=== PATIENT | male | born 1945 | race Caucasian/White ===

== ENCOUNTER 2018-05-02 14:48 | Inpatient (IN) ==
[2018-05-02] MEDS ORDERED: SODIUM CHLORIDE 0.9% 1000ML 1,000 ML IV ONE (15:40)
[2018-05-02] MEDS ORDERED: fentaNYL citrate 100 MCG/2 ML VIAL IV PRN (15:40)
[2018-05-02] MEDS ORDERED: fentaNYL citrate 100 MCG/2 ML VIAL IV STA (15:40)
[2018-05-02 16:40] LABS: Basophils # (auto) 0.02 K/uL (0-0.2); Basophils % (auto) 0.2 %; Eosinophils # (auto) 0.05 K/uL (0-0.5); Eosinophils % (auto) 0.5 %; Hematocrit (blood only) 46.1 % (42-52); Hemoglobin 16.1 g/dL (14.0-18.0); Immature Granulocytes # (auto) 0.02 K/uL (0.00-0.02); Immature Granulocytes % (auto) 0.2 %; Lymphocytes # (auto) 0.89 K/uL (1.2-3.4); Lymphocytes % (auto) 8.8 %; Mean Corpuscular Hgb Conc 34.9 g/dL (32-36); Mean Corpuscular Volume 89.5 fL (80-100); Mean Platelet Volume 10.7 fL (7.4-10.4); Monocytes # (auto) 0.88 K/uL (0.11-0.59); Monocytes % (auto) 8.7 %; Neutrophils # (auto) 8.21 K/uL (1.4-6.5); Neutrophils % (auto) 81.6 %; Platelet Count 265 K/uL (130-400); RDW Coefficient of Variation 13.2 % (11.5-14.5); RDW Standard Deviation 43.2 fL (36.4-46.3); Red Blood Count 5.15 M/uL (4.7-6.1); White Blood Count 10.07 K/uL (4.8-10.8)
[2018-05-02 16:56] LABS: BUN Creatinine Ratio 10.8 (10-20); Blood Urea Nitrogen 16 mg/dl (7-18); Calcium 9.2 mg/dl (8.5-10.1); Carbon Dioxide 23 mmol/L (21-32); Chloride 101 mmol/L (98-107); Est GFR (African American) 57.1; Est GFR (Non-African American) 49.3; Glucose 98 mg/dl (70-99); Magnesium 2.3 mg/dl (1.8-2.4); Sodium 134 mmol/L (136-145)
[2018-05-02 17:00] LABS: Creatine Kinase 185 U/L (39-308); Troponin I < 0.015 ng/ml (0-0.045)
--- NOTE | 2018-05-02 17:29 | XRay Report ---
XR pelvis 1-2V routine, XR femur RT 2V routine HISTORY: 72 years-old Male Right hip pain s/p fall acute right hip pain status post fall COMPARISON: None available TECHNIQUE: AP view of the pelvis with 2 views of the right femur FINDINGS: PELVIS: No acute fracture, dislocation or opaque foreign body. No avascular necrosis. Vascular calcifications noted. FEMUR: No acute fracture or dislocation. Soft tissues are within normal limits. IMPRESSION: No acute fracture or dislocation. The above report was generated using voice recognition software. It may contain grammatical, syntax o r spelling errors. Electronically signed by: Pato Aceves M.D. 05/02/2018 5:28 PM
--- NOTE | 2018-05-02 17:29 | XRay Report ---
XR chest 1V portable CLINICAL HISTORY: fall, weakness COMPARISON STUDY: No previous studies for comparison. FINDINGS: There is no pneumothorax or pleural effusion. Cardiac size is normal. Mediastinal contours are normal. There is no evidence for pulmonary edema. There is no consolidation. There is a possible 1 cm left lower lung nodule. IMPRESSION: 1. No acute cardiomegaly findings. 2. Possible 1 cm left lower lung nodule. Follow-up nonemergent PA and shallow oblique radiographs of chest are recommended. Electronically signed by: Zaid Carrillo M.D. 05/02/2018 5:28 PM
[2018-05-02 17:52] LABS: Appearance Urine Clear (Clear); Bilirubin Urine Negative (Negative); Color Urine Yellow; Glucose Urine UA Negative (Negative); Ketones Urine Negative (Negative); Leukocyte Esterase Urine Negative (Negative); Nitrite Urine Negative (Negative); Protein Urine Negative (Negative); Urobilinogen Urine Negative (Negative); pH Urine 5.5 (4.5-7.5)
--- NOTE | 2018-05-02 18:01 | CT Scan Report ---
CT head/brain wo con CLINICAL HISTORY: 72 years-old Male with fall, LOC. Acute fall with loss of consciousness TECHNIQUE: Multiple axial CT images of the head were obtained without contrast. A dose lowering tech nique was utilized adhering to the principles of ALARA. CT DOSE: 729.78 mGycm COMPARISON: None. FINDINGS: No acute intracranial hemorrhage, midline shift, intracranial mass, hydrocephalus, territorial ischem ia or abnormal extra-axial collection. Senescent calcifications of the lentiform nuclei. Mild atrophy . Cerebral vascular calcifications are noted. Punctate calcification is noted about a sulcus within t he right frontal lobe, image 20 series 2. The calvarium is intact. The paranasal sinuses, mastoid air cells, and middle ear cavities are clear . IMPRESSION: No acute intracranial abnormality or calvarial fracture. The above report was generated using voice recognition software. It may contain grammatical, syntax o r spelling errors. Electronically signed by: Pato Aceves M.D. 05/02/2018 5:59 PM
--- NOTE | 2018-05-02 18:09 | CT Scan Report ---
CT pelvis wo con HISTORY: 72 years-old Male Persistent right hip pain, non-specific xrays hip chronic right hip pain COMPARISON: Pelvis and right hip radiographs of same day TECHNIQUE: Multiple axial CT images of the pelvis were obtained without the use of IV contrast. A dos e lowering technique was used consistent with the principals of MIREYA. 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 There is a subtle acute nondisplaced transcervical fracture of the proximal right femur, fracture lines most notably seen about the superi or and posterior cortices. No angulation. The left proximal femur and imaged pelvic bones appear norm al and intact. No additional acute fracture or dislocation. No sacral insufficiency fracture. Mild sp ondylitic spurring and facet arthrosis of the imaged lower lumbar spine. Calcification of the iliac arteries. No acute process of the imaged intrapelvic structures. The visua lized appendix appears normal. Colonic diverticulosis without acute diverticulitis. Mild wall thicken ing of the sigmoid colon, likely from chronic diverticular disease. Prostamegaly. Mild deep tissue ed jose about the right hip with trace joint effusion. No large intramuscular hematoma. IMPRESSION: 1. Subtle acute nondisplaced transcervical fracture of the proximal right femur. 2. Mild degree of reactive deep tissue edema about the right hip with trace joint effusion. 3. Prostamegaly. 4. Mild wall thickening of the sigmoid colon, likely secondary to chronic diverticular disease. The above report was generated using voice recognition software. It may contain grammatical, syntax o r spelling errors. Electronically signed by: Pato Aceves M.D. 05/02/2018 6:07 PM
[2018-05-02 18:32] LABS: Bacteria Urine Automated Negative (Negative); Cast Urine Automated 0 /lpf (0-5); Epithelial Cell Urine Auto 0-5 /lpf (0-5); Mucus Urine Present (None Prsent)
[2018-05-02 18:42] LABS: INR 1.1 (0.9-1.1); Prothrombin Time 11.4 Seconds (9.0-12.0)
--- NOTE | 2018-05-02 19:13 | History & Physical Report ---
Date of Service May 02, 2018 Assessment & Plan (1) Fracture of proximal end of right femur: This is a 9-year-old male with a PMH of HTN, CKD III, moderate COPD, BPH and tobacco use disorder who presents after a fall at home last evening. -Possible syncopal episode proceeding fall -CT head without acute abnormality -CT pelvis with subtle acute nondisplaced transcervical fracture of the proximal right femur and mild degree of reactive deep tissue edema about the right hip with trace joint effusion -Ortho consulted. Will see patient tomorrow -NPO after midnight. Pain control, antiemetics -Neurovascular checks, bedrest until surgical evaluation -CXR without acute cardiopulmonary abnormality. EKG with sinus rhythm and pulmonary disease pattern -Revised cardiac risk index for pre-op of 0.4% for risk of major cardiac event -Has never been evaluated by [facility] cardio. No record of echo performed in the past -Please refer to attending addendum for further details (2) Episode of syncope: No history of syncopal episodes -Ddx: vasovagal vs orthostatic vs cardiac etiology -Initially dry on exam and endorses feeling lightheaded when standing -Unable to obtain orthostatic vitals 2/2 leg pain -No known h/o cardiac disease -EKG without arrhythmia or acute ST changes -Order 2D echo (3) COPD (chronic obstructive pulmonary disease): H/o moderate-severe obstructive airway disease on 2008 PFTs -Longstanding tobacco use -Does not use home inhalers or home O2 -Saturating at 94% on RA (4) HTN (hypertension): Normotensive -Consider holding lisinopril in setting of mildly elevated creatinine (5) CKD (chronic kidney disease), stage III: Baseline Cr of 1.1-1.3, GFR of mid 50s. Currently Cr 1.4, GFR 49 -Dry on exam initially. Given 1L NSS in ED -Repeat BMP in AM to monitor renal function -Avoid nephrotoxic agents (6) Tobacco use disorder: Has 50+ pack years. Quit smoking cigarettes in 2012, now smokes tobacco from a pipe -Counselled on importance of cessation -Offered nicotine patch (7) BPH (benign prostatic hyperplasia): Continue flomax, proscar DVT Ppx: SCDs in setting of possible procedure tomorrow Code status: DNR per discussion with patient PCP: [facility] Dispo: Admitted to med/surg. Discharge planning ordered. Patient seen in collaboration with Dr. Denis. Please see addendum. History of Present Illness Chief Complaint: Right leg pain Primary Care Provider: Adrian Haque MD This is a 9-year-old male with a PMH of HTN, CKD III, moderate COPD, BPH and tobacco use disorder who presents after a fall at home last evening. Patient was walking to the kitchen and reached up to get something out of the cabinet when he lost consciousness and fell to the ground, hitting his right leg on some furniture on the way down. Endorses head trauma. Denies any proceeding lightheadedness, dizziness, chest pain, palpitations or shortness of breath. After landing on furniture, patient experienced shooting pain to right leg with any type of ambulation. Was attempting to ambulate with crutches around midnight when he had a mechanical fall. Continued to experience pain overnight with any movement of right leg. Took 2 ibuprofen at home with minimal relief. Came to ED for further evaluation Patient is hemodynamically stable. CT head and chest x-ray without acute abnormalities. CT pelvis with subtle acute nondisplaced transcervical fracture of the proximal right femur and mild degree of reactive deep tissue edema about the right hip with trace joint effusion. Feels mildly nauseated right now but thinks it is due to the pain medication he was just given. Has not been able to tolerate p.o. intake today due to pain. Did not take home medications today. Denies any fever, chills, lightheadedness, headache, chest pain, palpitations, shortness of breath, abdominal pain, vomiting, dysuria, diarrhea or constipation. No history of heart disease or DVT/PE. Does not require home oxygen. Allergies Allergy/AdvReac Type Severity Reaction Status Date / Time No Known Allergies Allergy Unverified 05/02/18 19:12 Home Medications Home Medications Medication Instructions Recorded Confirmed Type aspirin [Aspir-81] 81 mg PO DAILY@1300 05/02/18 05/02/18 History finasteride [Proscar] 5 mg PO DAILY@1300 05/02/18 05/02/18 History ibuprofen 200 mg PO QID PRN 05/02/18 05/02/18 History lisinopril [Zestril] 5 mg PO DAILY@1300 05/02/18 05/02/18 History loratadine [Claritin] 10 mg PO DAILY@1300 05/02/18 05/02/18 History multivitamin 1 tab PO DAILY@1300 05/02/18 05/02/18 History tamsulosin [Flomax] 0.4 mg PO DAILY@1300 05/02/18 05/02/18 History Past Med/Surg History Medical History Asymptomatic PVD (peripheral vascular disease) (Chronic) Tobacco use disorder (Chronic) CKD (chronic kidney disease), stage III (Chronic) COPD (chronic obstructive pulmonary disease) (Chronic) BPH (benign prostatic hyperplasia) (Chronic) HTN (hypertension) (Chronic) Surgical History History of tonsillectomy (Resolved) Family History Mother Congestive heart failure Social History Current Living Situation: Spouse Other Information That Helps Us Care for You: No Feels Safe at Home: Yes Safety Concerns: Feels Safe At This Time Smoking Status: Current every day smoker Tobacco Type: pipe Cigarettes per Day : 8-10/day Hx Alcohol Use: No Hx Substance Use: No Beliefs That Will Affect Care: None Preferred Language: Green[place]ic Communication Ability: Effective Communication Ability Comment: [place] Review of Systems All systems reviewed & are unremarkable except as noted in HPI & below Physical Exam 2 Vital Signs (Past 24 Hours): Last Vital Signs Temp 36.7 C 05/02/18 14:35 Pulse 87 05/02/18 17:20 Resp 25 H 05/02/18 17:20 BP 133/75 05/02/18 14:51 Pulse Ox 94 05/02/18 17:20 Physical Exam: General Appearance: WD/WN, appears older than stated age, in mild distress from acute right leg pain Head: normocephalic, atraumatic Eyes: normal inspection, PERRL, EOMI ENT: hard of hearing, pharynx normal (moist mucous membranes) Neck: supple, no JVD, no adenopathy Respiratory/Chest: lungs clear to auscultation. No wheezes, rales or rhonci. No respiratory distress or accessory muscle use Cardiovascular: regular rate, rhythm, no murmur, normal peripheral pulses Abdomen/GI: normal bowel sounds, soft, non-tender to palpation Extremities/Musculoskelatal: + Tenderness to palpation along right proximal femur. Refused range of motion and strength against resistance 2/2 pain. Distal pulses intact. No calf tenderness, normal capillary refill, no pedal edema Neurologic/Psych: alert, normal mood/affect, oriented x 3 Skin: normal color, warm/dry Results & Data Laboratory Results Short CBC 05/02/18 05/02/18 05/02/18 Range/Units 14:50 14:50 17:05 WBC 10.07 (4.8-10.8) K/uL Hgb 16.1 (14.0-18.0) g/dL Hct 46.1 (42-52) % Plt Count 265 (130-400) K/uL Creatinine 1.43 H (0.6-1.4) mg/dl Urine Mucus Present H (None Prsent) BMP 05/02/18 14:50 Sodium 134 L Potassium 4.0 Chloride 101 Carbon Dioxide 23 BUN 16 Creatinine 1.43 H Glucose 98 Calcium 9.2 Cardiac Enzymes 05/02/18 Range/Units 14:50 Total Creatine Kinase 185 (39-308) U/L Troponin I < 0.015 (0-0.045) ng/ml Urine 05/02/18 Range/Units 17:05 Urine Color Yellow Urine Appearance Clear (Clear) Urine pH 5.5 (4.5-7.5) Ur Specific [place] 1.010 (1.000-1.030) Urine Protein Negative (Negative) Urine Glucose (UA) Negative (Negative) Diagnostic Findings CT head: IMPRESSION: No acute intracranial abnormality or calvarial fracture. CXR: IMPRESSION: 1. No acute cardiomegaly findings. 2. Possible 1 cm left lower lung nodule. Follow-up non-emergent PA and shallow oblique radiographs of chest are recommended. Pelvis XR: IMPRESSION: No acute fracture or dislocation. Femur XR: IMPRESSION: No acute fracture or dislocation. Pelvis CT: IMPRESSION: 1. Subtle acute nondisplaced transcervical fracture of the proximal right femur. 2. Mild degree of reactive deep tissue edema about the right hip with trace joint effusion. 3. Prostamegaly. 4. Mild wall thickening of the sigmoid colon, likely secondary to chronic diverticular disease. ECG Rhythm: normal sinus Additional Comments: pulmonary disease pattern Code Status & VTE Plan Code Status DNR per discussion with patient Supervising Physician Co-Signing Physician Notes IM ATTENDING : Patient seen and examined. History obtained from patient and records. Preceding documentation by Ms. Brittanie Bynum PA-C reviewed. FINAL ASSESSMENT AND PLAN as follows : Traumatic right femoral fracture secondary to syncopal event Syncopal event likely secondary to orthostasis (antihypertensive and prostate meds contributory) rule out cardiac dysfunction COPD, pulmonary status at baseline PVD as per records CRI, creatinine at baseline Lung spot on pCXR History PTB status post treatment Past tobacco abuse Medical telemetry RE syncope Check orthostatic vitals Decrease maintenance home DEION inhibitor dose for now TTE RE syncope Orthopedics consult RE right femoral fracture (ER provider already in touch with clinical services specialist, Dr. Alvarez, who recommends possible surgery. Final preop medical evaluation pending TTE results. Routine PA Lat, oblique CXR in a.m. regarding abnormal PCXR DVT prophylaxis. SCDs RE possible surgery (Recommend pharmacologic anti-coagulation with heparin 5000 units subcutaneous every 8 hours once bleeding risk is deemed to be minimal and negligible pending Orthopedics evaluation.) DNR Patient's requesting updates from providers. Mrs. Yolette Ivory, contact numbers [phone], [phone]. _ (1) Fracture of proximal end of right femur Encounter type: initial encounter Fracture healing: Fracture type: closed Open fracture type: Qualified Code(s): S72.001A - Fracture of unspecified part of neck of right femur, initial encounter for closed fracture
[2018-05-02] MEDS ORDERED: KETOROLAC TROMETHAMINE 15 MG/ML VIAL IV PRN (19:34)
[2018-05-02] MEDS ORDERED: PROCHLORPERAZINE 5 MG in SYRINGE 4 ML IV PRN (19:37)
[2018-05-02] MEDS: HYDROmorphone INJ 0.5 MG/0.5 ML SYR IV PRN (19:57)
[2018-05-02] MEDS ORDERED: NITROGLYCERIN SL 0.4 MG/TAB TAB SL PRN (21:45)
[2018-05-02] MEDS ORDERED: MAGNESIUM HYDROXIDE SUSP 30 ML UDC PO PRN (21:45)
[2018-05-02] MEDS ORDERED: BISACODYL 10 MG SUPP PR PRN (21:45)
[2018-05-02] MEDS ORDERED: SOD PHOSPHATE/SOD BIPHOSPHATE ENEMA 132 ML BTL PR PRN (21:45)
[2018-05-02] MEDS ORDERED: NALOXONE HCL 0.4 MG/1 ML VIAL/CARP IV PRN (21:45)
[2018-05-02] MEDS ORDERED: ACETAMINOPHEN 325 MG TAB PO PRN (21:45)
[2018-05-02] MEDS: SODIUM CHLORIDE 0.9% 1000ML 1,000 ML IV SCH (23:40)
[2018-05-03] MEDS: HYDROmorphone INJ 0.5 MG/0.5 ML SYR IV PRN ×4 (00:08→12:34)
[2018-05-03] MEDS: TRAMADOL HCL 50 MG TABLET PO PRN ×3 (04:27→21:19)
[2018-05-03] MEDS ORDERED: LISINOPRIL 2.5 MG TAB PO SCH (09:00)
--- NOTE | 2018-05-03 09:33 | Emergency Department Note ---
Entered by Meka Ashton acting as a scribe for ED Provider Note Name: Te Ivory Age: 72 Arrives Via: EMS Informant: Patient CC: Fall HPI: The patient is a 72 year old male who presents to the Emergency Room via EMS following a fall that occurred last night around 2229. The patient reports that he injured his right hip during this episode and has had a persistent pain which is exacerbated by movement. He also states that he injured his head twice. Per , the patient took 2 ibuprofen earlier today which did alleviate his pain. The patient denies any abdominal pain, back pain, or chest pain. He admits to tobacco use via pipe and notes he is retired. The patient reports that he has not eaten today. Admits he was laying on the ground for most of the last 20ish hours. notes he has brief LOC after hitting his head. Mild headache currently. No neck pain, neuro deficits. Pain much worse with movement. Better with laying still. Denies blood thinner use other than ASA 81mg daily. ROS: See above HPI for pertinent positives & negatives. A total of 10 systems reviewed and were otherwise negative. Past Medical History: HTN, COPD, BPH, and hyperlipidemia. Past Surgical History: No pertinent past surgical history. Family History: No pertinent family history. Social History: , lives with spouse, tobacco use via pipe. Home Medications: finasteride 5 mg, lisinopril 5 mg, tamsulosin 0.4 mg, aspirin 81 mg, claritin 10 mg, men's multivitamins Allergies No known allergies. Physical: Vitals: BP: 133/75, P: 75, R: 16, T: 98.1, O2: 97 Exam: GENERAL: Patient is chronically unwell appearing, dehydrated appearing, and in moderate distress. EYES: No scleral icterus, unremarkable pupils. ENT: Mucous membranes dry, no nasal congestion. NECK: No masses appreciated, no meningismus, trachea is midline. RESPIRATORY: No dyspnea. Clear to auscultation and equal bilaterally. No wheeze , no rhonchi. CARDIOVASCULAR: Regular rate and rhythm. No murmurs, rubs, gallops appreciated. GASTROINTESTINAL: Abdomen soft, non-tender, no peritonitis. Bowel sounds positive. No masses appreciated. BACK: No midline tenderness, no CVA tenderness EXTREMITIES: Severe with range of motion of right hip, tenderness to palpation to right greater trochanter, distal n/v intact, no cyanosis, no edema. NEUROLOGIC: Alert and oriented, no acute motor or sensory deficits, no focal weakness, cranial nerves grossly intact. SKIN: No rash, no jaundice, no diaphoresis. GCS 15 ED Course: Prior Medical Record, Triage/Nursing Notes, Medications, Allergies reviewed by Me Vital Signs: reviewed and are within normal limits. Labs: Reviewed and remarkable for normal CBC, BMP, CK Interventions: Saline Lock, Fentanyl 50mcg IV x 2 Imaging: See below. EKG: See below. Consults: 1827: I reviewed the patient's case with Dr. Adeel Cope Hospitalist. He will evaluate the patient for further management. 1844; I discussed the patient's case with Dr. Alvarez - [facility]. He notes surgery might be necessary. Reassessments/Times: 1742: The patient is feeling better. Blood pressure: Normal no referral necessary. Disposition: Admit to hospitalist Prescriptions: none. Differentials: hip fracture, hip contusion, dehydration, rabdo, renal failure, amongst other pathologies. Medical Decision Making: Pleasant 72 yr old male s/p fall last evening and has been caring for him on ground since. No obvious rhabdo by exam nor labs. He has severe pain with ROM right hip which is out of proportion to negative xrays. With head injury felt that CT head indicated (age, + LOC) which was negative. CT pelvis done at same time reveals proximal femur fracture. Hospitalist to admit and ortho on board as well. Patient kept comfortable. No evidence that fall was due to anything other than mechanical at this time. Impression: Fracture of proximal end of right femur Closed Head Injury Isidro Saravia MD The scribe's documentation has been prepared under my direction and personally reviewed by me in its entirety. I confirm that the note above accurately reflects all work, treatment, procedures, and medical decision making performed by me. Impression & Plan Fracture of proximal end of right femur, Closed head injury Past Med/Surg History Medical History Asymptomatic PVD (peripheral vascular disease) (Chronic) Tobacco use disorder (Chronic) CKD (chronic kidney disease), stage III (Chronic) COPD (chronic obstructive pulmonary disease) (Chronic) BPH (benign prostatic hyperplasia) (Chronic) HTN (hypertension) (Chronic) Surgical History History of tonsillectomy (Resolved) Family History Mother Congestive heart failure Social History Current Living Situation: Spouse Other Information That Helps Us Care for You: No Feels Safe at Home: Yes Safety Concerns: Feels Safe At This Time Smoking Status: Current every day smoker Tobacco Type: pipe Cigarettes per Day : 8-10/day Hx Alcohol Use: No Hx Substance Use: No Beliefs That Will Affect Care: None Preferred Language: Ukrainian Communication Ability: Effective Communication Ability Comment: [place] Results & Data Vital Signs Vital Signs - 24 hr 05/02/18 14:35 05/02/18 14:51 05/02/18 15:24 Temperature 36.7 C Temperature Source Oral Sepsis Recent Fever Within 48 Hours No Sepsis New/Unexplained Change in Mental Status No Sepsis Action Taken by Nursing No Action Required Pulse Rate 95 H 74 81 Pulse Rate [Left Finger] Pulse Rhythm Regular Pulse Rhythm [Left Finger] Pulse Strength Normal Pulse Strength [Left Finger] Respiratory Rate 18 19 18 Respiratory Effort / Characteristics Non-Labored Spontaneous Respiratory Depth Normal Respiratory Pattern Regular Blood Pressure 133/75 133/75 Blood Pressure [Right Arm] Blood Pressure Mean 94 94 Blood Pressure Mean [Right Arm] Blood Pressure Position Lying Blood Pressure Position [Right Arm] Pulse Oximetry 98 97 97 Pulse Oximetry [Right Index Finger] Oxygen Delivery Method Room Air Oxygen Delivery Method [Right Index Finger] Oxygen Flow Rate 0 05/02/18 15:30 05/02/18 15:40 05/02/18 15:50 Temperature Temperature Source Sepsis Recent Fever Within 48 Hours Sepsis New/Unexplained Change in Mental Status Sepsis Action Taken by Nursing Pulse Rate 75 83 81 Pulse Rate [Left Finger] Pulse Rhythm Pulse Rhythm [Left Finger] Pulse Strength Pulse Strength [Left Finger] Respiratory Rate 16 19 16 Respiratory Effort / Characteristics Respiratory Depth Respiratory Pattern Blood Pressure Blood Pressure [Right Arm] Blood Pressure Mean Blood Pressure Mean [Right Arm] Blood Pressure Position Blood Pressure Position [Right Arm] Pulse Oximetry 97 97 99 Pulse Oximetry [Right Index Finger] Oxygen Delivery Method Oxygen Delivery Method [Right Index Finger] Oxygen Flow Rate 05/02/18 16:00 05/02/18 16:10 05/02/18 16:20 Temperature Temperature Source Sepsis Recent Fever Within 48 Hours Sepsis New/Unexplained Change in Mental Status Sepsis Action Taken by Nursing Pulse Rate 77 73 76 Pulse Rate [Left Finger] Pulse Rhythm Pulse Rhythm [Left Finger] Pulse Strength Pulse Strength [Left Finger] Respiratory Rate 14 10 L 20 Respiratory Effort / Characteristics Respiratory Depth Respiratory Pattern Blood Pressure Blood Pressure [Right Arm] Blood Pressure Mean Blood Pressure Mean [Right Arm] Blood Pressure Position Blood Pressure Position [Right Arm] Pulse Oximetry 97 98 98 Pulse Oximetry [Right Index Finger] Oxygen Delivery Method Oxygen Delivery Method [Right Index Finger] Oxygen Flow Rate 05/02/18 16:30 05/02/18 16:40 05/02/18 16:50 Temperature Temperature Source Sepsis Recent Fever Within 48 Hours Sepsis New/Unexplained Change in Mental Status Sepsis Action Taken by Nursing Pulse Rate 83 73 71 Pulse Rate [Left Finger] Pulse Rhythm Pulse Rhythm [Left Finger] Pulse Strength Pulse Strength [Left Finger] Respiratory Rate 19 18 17 Respiratory Effort / Characteristics Respiratory Depth Respiratory Pattern Blood Pressure Blood Pressure [Right Arm] Blood Pressure Mean Blood Pressure Mean [Right Arm] Blood Pressure Position Blood Pressure Position [Right Arm] Pulse Oximetry 97 98 97 Pulse Oximetry [Right Index Finger] Oxygen Delivery Method Oxygen Delivery Method [Right Index Finger] Oxygen Flow Rate 05/02/18 17:00 05/02/18 17:10 05/02/18 17:20 Temperature Temperature Source Sepsis Recent Fever Within 48 Hours Sepsis New/Unexplained Change in Mental Status Sepsis Action Taken by Nursing Pulse Rate 93 H 88 87 Pulse Rate [Left Finger] Pulse Rhythm Pulse Rhythm [Left Finger] Pulse Strength Pulse Strength [Left Finger] Respiratory Rate 25 H 19 25 H Respiratory Effort / Characteristics Respiratory Depth Respiratory Pattern Blood Pressure Blood Pressure [Right Arm] Blood Pressure Mean Blood Pressure Mean [Right Arm] Blood Pressure Position Blood Pressure Position [Right Arm] Pulse Oximetry 98 96 94 Pulse Oximetry [Right Index Finger] Oxygen Delivery Method Oxygen Delivery Method [Right Index Finger] Oxygen Flow Rate 05/02/18 21:21 05/02/18 21:45 05/02/18 22:10 Temperature 36.7 C 36.7 C Temperature Source Oral Oral Sepsis Recent Fever Within 48 Hours Sepsis New/Unexplained Change in Mental Status Sepsis Action Taken by Nursing Pulse Rate Pulse Rate [Left Finger] 77 82 82 Pulse Rhythm Pulse Rhythm [Left Finger] Regular Regular Pulse Strength Pulse Strength [Left Finger] Normal Normal Normal Respiratory Rate 18 20 20 Respiratory Effort / Characteristics Non-Labored Spontaneous Non-Labored Non-Labored Respiratory Depth Normal Normal Normal Respiratory Pattern Regular Regular Blood Pressure Blood Pressure [Right Arm] 105/72 126/74 126/74 Blood Pressure Mean Blood Pressure Mean [Right Arm] 83 91 91 Blood Pressure Position Blood Pressure Position [Right Arm] Lying Lying Lying Pulse Oximetry 95 99 99 Pulse Oximetry [Right Index Finger] Oxygen Delivery Method Room Air Room Air Room Air Oxygen Delivery Method [Right Index Finger] Oxygen Flow Rate 05/02/18 23:46 05/03/18 01:17 05/03/18 01:20 Temperature 36.9 C Temperature Source Oral Sepsis Recent Fever Within 48 Hours Sepsis New/Unexplained Change in Mental Status Sepsis Action Taken by Nursing Pulse Rate Pulse Rate [Left Finger] 91 H Pulse Rhythm Pulse Rhythm [Left Finger] Pulse Strength Pulse Strength [Left Finger] Respiratory Rate 18 Respiratory Effort / Characteristics Non-Labored Spontaneous Respiratory Depth Normal Respiratory Pattern Regular Blood Pressure Blood Pressure [Right Arm] 126/84 Blood Pressure Mean Blood Pressure Mean [Right Arm] 98 Blood Pressure Position Blood Pressure Position [Right Arm] Lying Pulse Oximetry 95 Pulse Oximetry [Right Index Finger] 95 Oxygen Delivery Method Room Air Room Air Oxygen Delivery Method [Right Index Finger] Room Air Oxygen Flow Rate 05/03/18 04:39 05/03/18 04:40 05/03/18 07:49 Temperature 36.7 C 36.7 C Temperature Source Oral Oral Sepsis Recent Fever Within 48 Hours Sepsis New/Unexplained Change in Mental Status Sepsis Action Taken by Nursing Pulse Rate Pulse Rate [Left Finger] 95 H 95 H Pulse Rhythm Pulse Rhythm [Left Finger] Regular Pulse Strength Pulse Strength [Left Finger] Normal Respiratory Rate 20 18 Respiratory Effort / Characteristics Non-Labored Spontaneous Respiratory Depth Normal Respiratory Pattern Regular Blood Pressure Blood Pressure [Right Arm] 121/75 116/71 Blood Pressure Mean Blood Pressure Mean [Right Arm] 90 86 Blood Pressure Position Blood Pressure Position [Right Arm] Semi-fowlers Pulse Oximetry 92 93 Pulse Oximetry [Right Index Finger] 92 Oxygen Delivery Method Room Air Room Air Oxygen Delivery Method [Right Index Finger] Room Air Oxygen Flow Rate Home Medications Current Medication List: was personally reviewed by me Laboratory Data Attestation: I reviewed the patient's lab results. Result diagrams: 05/02/18 14:50 05/02/18 14:50 Lab Results 05/02/18 05/02/18 05/02/18 Range/Units 14:50 14:50 14:50 WBC 10.07 (4.8-10.8) K/uL RBC 5.15 (4.7-6.1) M/uL Hgb 16.1 (14.0-18.0) g/dL Hct 46.1 (42-52) % MCV 89.5 (80-100) fL MCH 31.3 (25-34) pg MCHC 34.9 (32-36) g/dL RDW Std Deviation 43.2 (36.4-46.3) fL RDW Coeff of Sia 13.2 (11.5-14.5) % Plt Count 265 (130-400) K/uL MPV 10.7 H (7.4-10.4) fL Immature Gran % (Auto) 0.2 % Neut % (Auto) 81.6 % Lymph % (Auto) 8.8 % [place] % (Auto) 8.7 % Eos % (Auto) 0.5 % Baso % (Auto) 0.2 % Immature Gran # (Auto) 0.02 (0.00-0.02) K/uL Neut # (Auto) 8.21 H (1.4-6.5) K/uL Lymph # (Auto) 0.89 L (1.2-3.4) K/uL [place] # (Auto) 0.88 H (0.11-0.59) K/uL Eos # (Auto) 0.05 (0-0.5) K/uL Baso # (Auto) 0.02 (0-0.2) K/uL PT Cancelled INR Cancelled Sodium 134 L (136-145) mmol/L Potassium 4.0 (3.5-5.1) mmol/L Chloride 101 (98-107) mmol/L Carbon Dioxide 23 (21-32) mmol/L Anion Gap 10.0 (3-11) BUN 16 (7-18) mg/dl Creatinine 1.43 H (0.6-1.4) mg/dl Est Cr Clr Drug Dosing Not Reportable Est GFR ( Amer) 57.1 Est GFR (Non-Af Amer) 49.3 BUN/Creatinine Ratio 10.8 (10-20) Glucose 98 (70-99) mg/dl Calcium 9.2 (8.5-10.1) mg/dl Magnesium 2.3 (1.8-2.4) mg/dl Total Creatine Kinase 185 (39-308) U/L Troponin I < 0.015 (0-0.045) ng/ml TSH (0.300-4.500) uIu/ml Urine Color Urine Appearance (Clear) Urine pH (4.5-7.5) Ur Specific [place] (1.000-1.030) Urine Protein (Negative) Urine Glucose (UA) (Negative) Urine Ketones (Negative) Urine Blood (Negative) Urine Nitrite (Negative) Urine Bilirubin (Negative) Urine Urobilinogen (Negative) Ur Leukocyte Esterase (Negative) Urine WBC (Auto) (0-5) /hpf Urine RBC (Auto) (0-4) /hpf U Hyaline Cast (Auto) (0-5) /lpf U Epithel Cells (Auto) (0-5) /lpf Urine Bacteria (Auto) (Negative) Urine Mucus (None Prsent) Blood Type Antibody Screen 05/02/18 05/02/18 05/02/18 Range/Units 14:50 17:05 17:05 WBC (4.8-10.8) K/uL RBC (4.7-6.1) M/uL Hgb (14.0-18.0) g/dL Hct (42-52) % MCV (80-100) fL MCH (25-34) pg MCHC (32-36) g/dL RDW Std Deviation (36.4-46.3) fL RDW Coeff of Sia (11.5-14.5) % Plt Count (130-400) K/uL MPV (7.4-10.4) fL Immature Gran % (Auto) % Neut % (Auto) % Lymph % (Auto) % [place] % (Auto) % Eos % (Auto) % Baso % (Auto) % Immature Gran # (Auto) (0.00-0.02) K/uL Neut # (Auto) (1.4-6.5) K/uL Lymph # (Auto) (1.2-3.4) K/uL [place] # (Auto) (0.11-0.59) K/uL Eos # (Auto) (0-0.5) K/uL Baso # (Auto) (0-0.2) K/uL PT Cancelled INR Cancelled Sodium (136-145) mmol/L Potassium (3.5-5.1) mmol/L Chloride (98-107) mmol/L Carbon Dioxide (21-32) mmol/L Anion Gap (3-11) BUN (7-18) mg/dl Creatinine (0.6-1.4) mg/dl Est Cr Clr Drug Dosing Est GFR ( Amer) Est GFR (Non-Af Amer) BUN/Creatinine Ratio (10-20) Glucose (70-99) mg/dl Calcium (8.5-10.1) mg/dl Magnesium (1.8-2.4) mg/dl Total Creatine Kinase (39-308) U/L Troponin I (0-0.045) ng/ml TSH 0.788 (0.300-4.500) uIu/ml Urine Color Yellow Urine Appearance Clear (Clear) Urine pH 5.5 (4.5-7.5) Ur Specific [place] 1.010 (1.000-1.030) Urine Protein Negative (Negative) Urine Glucose (UA) Negative (Negative) Urine Ketones Negative (Negative) Urine Blood 1+ H (Negative) Urine Nitrite Negative (Negative) Urine Bilirubin Negative (Negative) Urine Urobilinogen Negative (Negative) Ur Leukocyte Esterase Negative (Negative) Urine WBC (Auto) 5-10 H (0-5) /hpf Urine RBC (Auto) 0-4 (0-4) /hpf U Hyaline Cast (Auto) 0 (0-5) /lpf U Epithel Cells (Auto) 0-5 (0-5) /lpf Urine Bacteria (Auto) Negative (Negative) Urine Mucus Present H (None Prsent) Blood Type Antibody Screen 05/02/18 05/03/18 Range/Units 18:26 05:41 WBC (4.8-10.8) K/uL RBC (4.7-6.1) M/uL Hgb (14.0-18.0) g/dL Hct (42-52) % MCV (80-100) fL MCH (25-34) pg MCHC (32-36) g/dL RDW Std Deviation (36.4-46.3) fL RDW Coeff of Sia (11.5-14.5) % Plt Count (130-400) K/uL MPV (7.4-10.4) fL Immature Gran % (Auto) % Neut % (Auto) % Lymph % (Auto) % [place] % (Auto) % Eos % (Auto) % Baso % (Auto) % Immature Gran # (Auto) (0.00-0.02) K/uL Neut # (Auto) (1.4-6.5) K/uL Lymph # (Auto) (1.2-3.4) K/uL [place] # (Auto) (0.11-0.59) K/uL Eos # (Auto) (0-0.5) K/uL Baso # (Auto) (0-0.2) K/uL PT 11.4 INR 1.1 Sodium (136-145) mmol/L Potassium (3.5-5.1) mmol/L Chloride (98-107) mmol/L Carbon Dioxide (21-32) mmol/L Anion Gap (3-11) BUN (7-18) mg/dl Creatinine (0.6-1.4) mg/dl Est Cr Clr Drug Dosing Est GFR ( Amer) Est GFR (Non-Af Amer) BUN/Creatinine Ratio (10-20) Glucose (70-99) mg/dl Calcium (8.5-10.1) mg/dl Magnesium (1.8-2.4) mg/dl Total Creatine Kinase (39-308) U/L Troponin I (0-0.045) ng/ml TSH (0.300-4.500) uIu/ml Urine Color Urine Appearance (Clear) Urine pH (4.5-7.5) Ur Specific [place] (1.000-1.030) Urine Protein (Negative) Urine Glucose (UA) (Negative) Urine Ketones (Negative) Urine Blood (Negative) Urine Nitrite (Negative) Urine Bilirubin (Negative) Urine Urobilinogen (Negative) Ur Leukocyte Esterase (Negative) Urine WBC (Auto) (0-5) /hpf Urine RBC (Auto) (0-4) /hpf U Hyaline Cast (Auto) (0-5) /lpf U Epithel Cells (Auto) (0-5) /lpf Urine Bacteria (Auto) (Negative) Urine Mucus (None Prsent) Blood Type B Negative Antibody Screen NEGATIVE Administered Medications Hydromorphone HCl (Dilaudid) 0.5 mg IV Q3H PRN PRN Reason: Pain Stop: 05/16/18 19:36 Last Admin: 05/03/18 07:49 Dose: 0.5 mg Admin: 05/03/18 03:14 Dose: 0.5 mg Admin: 05/03/18 00:08 Dose: 0.5 mg Admin: 05/02/18 19:57 Dose: 0.5 mg Sodium Chloride (Nss 1000ml) 1,000 mls @ 60 mls/hr IV .[id number] ANA M Stop: 06/02/18 00:00 Last Admin: 05/02/18 23:40 Dose: 60 mls/hr Lisinopril (Zestril) 2.5 mg PO QAM ANA M Stop: 06/02/18 08:59 Last Admin: 05/03/18 09:01 Dose: 2.5 mg Tramadol HCl (Ultram) 25 - 50 mg PO Q4H PRN PRN Reason: Pain Stop: 06/01/18 19:36 Last Admin: 05/03/18 09:00 Dose: 50 mg Admin: 05/03/18 04:27 Dose: 50 mg Discontinued Medications Fentanyl Citrate (Fentanyl Citrate) 50 mcg IV NOW STA Stop: 05/02/18 15:41 Last Admin: 05/02/18 15:57 Dose: 50 mcg Fentanyl Citrate (Fentanyl Citrate) 50 mcg IV Q15M PRN PRN Reason: Pain Stop: 05/16/18 15:39 Last Admin: 05/02/18 17:30 Dose: 50 mcg Sodium Chloride (Nss 1000ml) 1,000 mls @ 999 mls/hr IV .[id number] ONE Stop: 05/02/18 16:40 Last Infusion: 05/02/18 16:42 Dose: 0 mls/hr Admin: 05/02/18 15:50 Dose: 999 mls/hr Imaging Data Radiologist's Impression: Radiology results as stated below per my review and the radiologist's interpretation: XR pelvis 1-2V routine, XR femur RT 2V routine HISTORY: 72 years-old Male Right hip pain s/p fall acute right hip pain status post fall COMPARISON: None available TECHNIQUE: AP view of the pelvis with 2 views of the right femur FINDINGS: PELVIS: No acute fracture, dislocation or opaque foreign body. No avascular necrosis. Vascular calcifications noted. FEMUR: No acute fracture or dislocation. Soft tissues are within normal limits. IMPRESSION: No acute fracture or dislocation. The above report was generated using voice recognition software. It may contain grammatical, syntax or spelling errors. Electronically signed by: Pato Aceves M.D. 05/02/2018 5:28 PM XR chest 1V portable CLINICAL HISTORY: fall, weakness COMPARISON STUDY: No previous studies for comparison. FINDINGS: There is no pneumothorax or pleural effusion. Cardiac size is normal. Mediastinal contours are normal. There is no evidence for pulmonary edema. There is no consolidation. There is a possible 1 cm left lower lung nodule. IMPRESSION: 1. No acute cardiomegaly findings. 2. Possible 1 cm left lower lung nodule. Follow-up nonemergent PA and shallow oblique radiographs of chest are recommended. Electronically signed by: Zaid Carrillo M.D. 05/02/2018 5:[address] head/brain wo con CLINICAL HISTORY: 72 years-old Male with fall, LOC. Acute fall with loss of consciousness TECHNIQUE: Multiple axial CT images of the head were obtained without contrast. A dose lowering technique was utilized adhering to the principles of ALARA. CT DOSE: 729.78 mGycm COMPARISON: None. FINDINGS: No acute intracranial hemorrhage, midline shift, intracranial mass, hydrocephalus, territorial ischemia or abnormal extra-axial collection. Senescent calcifications of the lentiform nuclei. Mild atrophy. Cerebral vascular calcifications are noted. Punctate calcification is noted about a sulcus within the right frontal lobe, image 20 series 2. The calvarium is intact. The paranasal sinuses, mastoid air cells, and middle ear cavities are clear. IMPRESSION: No acute intracranial abnormality or calvarial fracture. The above report was generated using voice recognition software. It may contain grammatical, syntax or spelling errors. Electronically signed by: Pato Aceves M.D. 05/02/2018 5:[address] pelvis wo con HISTORY: 72 years-old Male Persistent right hip pain, non-specific xrays hip chronic right hip pain COMPARISON: Pelvis and right hip radiographs of same day TECHNIQUE: Multiple axial CT images of the pelvis were obtained without the use of IV contrast. A dose lowering technique was used consistent with the principals of ALARA. 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 There is a subtle acute nondisplaced transcervical fracture of the proximal right femur, fracture lines most notably seen about the superior and posterior cortices. No angulation. The left proximal femur and imaged pelvic bones appear normal and intact. No additional acute fracture or dislocation. No sacral insufficiency fracture. Mild spondylitic spurring and facet arthrosis of the imaged lower lumbar spine. Calcification of the iliac arteries. No acute process of the imaged intrapelvic structures. The visualized appendix appears normal. Colonic diverticulosis without acute diverticulitis. Mild wall thickening of the sigmoid colon, likely from chronic diverticular disease. Prostamegaly. Mild deep tissue edema about the right hip with trace joint effusion. No large intramuscular hematoma. IMPRESSION: 1. Subtle acute nondisplaced transcervical fracture of the proximal right femur. 2. Mild degree of reactive deep tissue edema about the right hip with trace joint effusion. 3. Prostamegaly. 4. Mild wall thickening of the sigmoid colon, likely secondary to chronic diverticular disease. The above report was generated using voice recognition software. It may contain grammatical, syntax or spelling errors. Electronically signed by: Pato Aceves M.D. 05/02/2018 6:07 PM ECG Data Attestation: I personally reviewed and interpreted this ECG as follows: Indication: weakness Rate (beats per minute): 91 Rhythm: normal sinus Findings: + other (QTC of 435, large P waves); no acute ischemic change and no ectopy Blood Pressure Blood Pressure Findings: Normal blood pressure Blood Pressure Disposition: did not require urgent referral Discharge Plan Visit Data *Final* Discharge Date/Time: 05/02/18 20:46 Chief Complaint: Hip Pain Other Complaint: Syncope ED Provider: Isidro Saravia Discharge Problem: Fracture of proximal end of right femur, Closed head injury Patient Disposition: Admitted As Inpatient Discharge Instructions Interventions: ED Discharge Assessment Last Done: 05/02/18 20:46 The scribe's documentation has been prepared under my direction and personally reviewed by me in its entirety. I confirm that the note above accurately reflects all work, treatment, procedures, and medical decision making performed by me.
--- NOTE | 2018-05-03 10:30 | Anesthesiology Consultation ---
Date of Service May 03, 2018 COPD Smoker Mechanical Fall HTN BPH CKD PVD Assessment & Plan (1) Encounter for pre-operative examination: Chart Review Chart Review: Acceptable Risk for Surgery and Patient NOT seen in Pre Admission Testing Consults Requested none History Surgery Operation Date: 05/03/18 09:40 Proposed Procedures p ORIF Hip Cannulated Screw - Vladislav Alvarez DO s Total Hip Arthroplasty Uncemented - Vladislav Alvarez DO Height/Weight Height: 6 ft Weight: 68 kg Allergies Allergy/AdvReac Type Severity Reaction Status Date / Time No Known Allergies Allergy Unverified 05/02/18 19:12 Medications Home Medications Medication Instructions Recorded Confirmed Last Taken aspirin [Aspir-81] 81 mg PO DAILY@1300 05/02/18 05/02/18 05/01/18 finasteride [Proscar] 5 mg PO DAILY@1300 05/02/18 05/02/18 05/01/18 ibuprofen 200 mg PO QID PRN 05/02/18 05/02/18 05/02/18 10:30 lisinopril [Zestril] 5 mg PO DAILY@1300 05/02/18 05/02/18 05/01/18 loratadine [Claritin] 10 mg PO DAILY@1300 05/02/18 05/02/18 05/01/18 multivitamin 1 tab PO DAILY@1300 05/02/18 05/02/18 05/01/18 tamsulosin [Flomax] 0.4 mg PO DAILY@1300 05/02/18 05/02/18 05/01/18 Active Medications Generic Name Dose Route Start Last Admin Trade Name Freq PRN Reason Stop Dose Admin Hydromorphone HCl 0.5 mg 05/02/18 19:37 05/03/18 07:49 Dilaudid IV 05/16/18 19:36 0.5 mg Q3H PRN Administration Pain Sodium Chloride 1,000 mls @ 60 mls/hr 05/03/18 00:00 05/02/18 23:40 Nss 1000ml IV 06/02/18 00:00 60 mls/hr .[id number] ANA M Administration Lisinopril 2.5 mg 05/03/18 09:00 05/03/18 09:01 Zestril PO 06/02/18 08:59 2.5 mg QAM ANA M Administration Tramadol HCl 25 - 50 mg 05/02/18 19:37 05/03/18 09:00 Ultram PO 06/01/18 19:36 50 mg Q4H PRN Administration Pain Past Medical History Medical History Asymptomatic PVD (peripheral vascular disease) (Chronic) Tobacco use disorder (Chronic) CKD (chronic kidney disease), stage III (Chronic) COPD (chronic obstructive pulmonary disease) (Chronic) BPH (benign prostatic hyperplasia) (Chronic) HTN (hypertension) (Chronic) Past Family History Family History Mother Congestive heart failure Past Surgical History Surgical History History of tonsillectomy (Resolved) Social History Smoking Status: Current every day smoker tobacco type: pipe Smoking cigarettes per day: 8-10/day Hx Alcohol Use: No alcohol intake frequency: holidays/special occasions only Hx Substance Use: No Physical Exam Vital Signs Last Vital Signs Temp 36.7 C 05/03/18 07:49 Pulse 95 H 05/03/18 07:49 Resp 18 05/03/18 07:49 BP 116/71 05/03/18 07:49 Pulse Ox 93 05/03/18 07:49 Testing Electrocardiogram Date: 05/02/18 Findings: + NSR @ (91) "Pulmonary disease pattern" Chest X-Ray Date: 05/02/18 Findings: + NAD Laboratory Results 05/02/18 14:50 05/02/18 14:50 Blood Type B Negative 05/03/18 05:41 Antibody Screen NEGATIVE 05/03/18 05:41 PT 11.4 Seconds (9.0-12.0) 05/02/18 18:26 INR 1.1 (0.9-1.1) 05/02/18 18:26 Urine Color Yellow 05/02/18 17:05 Urine Appearance Clear (Clear) 05/02/18 17:05 Urine pH 5.5 (4.5-7.5) 05/02/18 17:05 Ur Specific [place] 1.010 (1.000-1.030) 05/02/18 17:05 Urine Protein Negative (Negative) 05/02/18 17:05 Urine Glucose (UA) Negative (Negative) 05/02/18 17:05 Urine Ketones Negative (Negative) 05/02/18 17:05 Urine Nitrite Negative (Negative) 05/02/18 17:05 Ur Leukocyte Esterase Negative (Negative) 05/02/18 17:05 Urine WBC (Auto) 5-10 /hpf (0-5) H 05/02/18 17:05 Urine RBC (Auto) 0-4 /hpf (0-4) 05/02/18 17:05 U Hyaline Cast (Auto) 0 /lpf (0-5) 05/02/18 17:05 U Epithel Cells (Auto) 0-5 /lpf (0-5) 05/02/18 17:05 Urine Bacteria (Auto) Negative (Negative) 05/02/18 17:05 Laboratory Tests 05/02/18 18:26 PT 11.4 INR 1.1
[2018-05-03] MEDS: TAMSULOSIN HCL 0.4 MG CAP PO SCH ×2 (12:35→17:10)
[2018-05-03] MEDS: LORATADINE 10 MG TAB PO SCH ×2 (12:35→17:10)
[2018-05-03] MEDS: MULTIVITAMIN TAB PO SCH ×2 (12:35→17:10)
[2018-05-03] MEDS: ASPIRIN 81 MG ECTAB PO SCH ×2 (12:39→17:10)
[2018-05-03] MEDS ORDERED: fentaNYL citrate 100 MCG/2 ML VIAL ONE (13:42)
[2018-05-03] MEDS ORDERED: MIDAZOLAM HCL 1 MG/ML 2ML VIAL ONE (13:42)
[2018-05-03] MEDS ORDERED: ATROPINE SULFATE 0.1 MG/ML 5ML SYR IV PRN (13:43)
[2018-05-03] MEDS ORDERED: fentaNYL citrate 100 MCG/2 ML VIAL IV PRN (13:43)
[2018-05-03] MEDS ORDERED: ONDANSETRON INJ 2 MG/ML 2 ML VIAL IV PRN (13:43)
[2018-05-03] MEDS ORDERED: ePHEDrine sulfate 50 MG/ML AMP IV PRN (13:43)
--- NOTE | 2018-05-03 14:13 | History & Physical Bridge Note ---
Date of Service May 03, 2018 History & Physical Bridge Note I have examined the patient, reviewed the History & Physical and in the interval since the performance of the History & Physical I have noted the following changes of clinical significance: no changes noted
[2018-05-03] MEDS ORDERED: CEFAZOLIN 1000MG 1,000 MG/7.5 ML SYR IV SCH (14:14)
[2018-05-03] MEDS ORDERED: CEFAZOLIN 1,000 MG/7.5 ML IV PUSH IV ONE (14:15)
--- NOTE | 2018-05-03 15:14 | Operative Report ---
Post Operative Report Pre & Post Diagnosis Operation Date: 05/03/18 09:40 Pre-Op Diagnosis: Fracture of proximal end of right femur Post-Op Diagnosis: Fracture of proximal end of right femur Procedure Operation Date: 05/03/18 09:40 Actual Procedures p Open Reduction Internal Fixation Right Hip Cannulated Screw(Right) - Guredep Michele MD Surgeon Gurdeep Michele MD Travel Accommodations [place] Estimated Blood Loss 20 Findings Consistent with Post-Op Diagnosis Specimens None Anesthesia Type General Complications none Disposition Accompanied Patient To Recovery: No Disposition: Recovery Room Description of Procedure Patient was placed in the fracture table and the right hip was prepped and draped in usual sterile manner. Incision was made over the lateral aspect of the thigh. A single drill tip guidewire was placed in the central inferior position of the femoral head. 2 parallel drill tip guidewire was placed superior anterior and superior posterior to this and these were overdrilled using 105 mm to 100mm cancellous bone screws. K wires removed final x-rays revealed good screw placement wound was irrigated and closed using #1 Vicryl and keny sterile dressing of Adaptic 4 x 4 and OpSite was applied. The patient tolerated procedure well. Mr. Mckeon was utilized to help position the patient I attest to the content of the Intraoperative Record and any orders documented therein. Any exceptions are noted below.
[2018-05-03] MEDS ORDERED: PROPOFOL IV EMULSION 10 MG/ML 20 ML VIAL IV ONE (15:15)
[2018-05-03] MEDS ORDERED: DEXAMETHASONE SOD INJ 4 MG/ML VIAL ONE (15:15)
[2018-05-03] MEDS ORDERED: ONDANSETRON INJ 2 MG/ML 2 ML VIAL ONE (15:15)
[2018-05-03] MEDS ORDERED: LIDOCAINE HCL 2% 2 ML VIAL/AMP(20MG/ML) INFIL ONE (15:15)
--- NOTE | 2018-05-03 15:21 | Fluoroscopy Report ---
FL hip RT 2-3V CLINICAL HISTORY: RT HIP PERCUTANEOUS PINNING VS TOTAL HIP COMPARISON STUDY: Right femur radiographs and CT of the pelvis September or 2018. FLUOROSCOPY TIME: 25.2 seconds. FLUOROSCOPIC IMAGES: 2 FINDINGS: These images demonstrate expected findings following placement of 3 cannulated screws which extend across the femoral neck fracture. Hardware is intact. Fracture alignment appears anatomic. Th ere are no unexpected radiopaque foreign bodies. IMPRESSION: Expected findings following internal fixation of the right femoral neck fracture. Electronically signed by: Zaid Carrillo M.D. 05/03/2018 3:20 PM
--- NOTE | 2018-05-03 15:42 | Anesthesiology Progress Note ---
Date of Service May 03, 2018 Anesthesia Post Procedure Vital Signs Vital Signs: Temp Pulse Pulse Pulse Resp BP Pulse Ox 05/03/18 15:30 92 H 18 126/76 100 05/03/18 15:20 102 H 18 123/67 99 05/03/18 15:10 97.3 F L 96 H 19 107/63 99 05/03/18 13:29 97.5 F L 104 H 20 155/97 H 95 05/03/18 11:14 98.1 F 87 18 108/63 93 05/03/18 08:00 89 05/03/18 07:49 98.1 F 95 H 18 116/71 93 05/03/18 04:40 05/03/18 04:39 98.1 F 95 H 20 121/75 92 05/03/18 01:20 05/03/18 01:17 98.4 F 91 H 18 126/84 95 05/02/18 22:10 98.1 F 82 20 126/74 99 05/02/18 21:45 98.1 F 82 20 126/74 99 05/02/18 21:21 77 18 105/72 95 05/02/18 17:20 87 25 H 94 05/02/18 17:10 88 19 96 05/02/18 17:00 93 H 25 H 98 05/02/18 16:50 71 17 97 05/02/18 16:40 73 18 98 05/02/18 16:30 83 19 97 05/02/18 16:20 76 20 98 05/02/18 16:10 73 10 L 98 05/02/18 16:00 77 14 97 05/02/18 15:50 81 16 99 Pulse Ox 05/03/18 15:30 05/03/18 15:20 05/03/18 15:10 05/03/18 13:29 05/03/18 11:14 05/03/18 08:00 93 05/03/18 07:49 05/03/18 04:40 92 05/03/18 04:39 05/03/18 01:20 95 05/03/18 01:17 05/02/18 22:10 05/02/18 21:45 05/02/18 21:21 05/02/18 17:20 05/02/18 17:10 05/02/18 17:00 05/02/18 16:50 05/02/18 16:40 05/02/18 16:30 05/02/18 16:20 05/02/18 16:10 05/02/18 16:00 05/02/18 15:50 Pain Intensity Right Hip: Pain Intensity: 0 Notes Mental Status: alert / awake / arousable and participated in evaluation Patient Amnestic to Procedure: Yes Nausea / Vomiting: adequately controlled Pain: adequately controlled Airway Patency, RR, SpO2: stable & adequate BP & HR: stable & adequate Hydration State: stable & adequate Anesthetic Complications: no major complications apparent and Pt Satisfied with anesthetic care
--- NOTE | 2018-05-03 16:11 | Hospitalist Progress Note ---
Date of Service May 03, 2018 Assessment & Plan (1) Left wrist fracture: Will defer management to Orthopedics, already seeing him for the hip. (2) Fall: He describes the fall at home at a time when he was attempting to get his cat out of a bad spot on a shelf, so he was racing across the kitched floor to help his . He doesn't remember tripping on anything or feeling any presyncopal symptoms such as lightheadedness, but states that when he fell down he remembers the point right before his head hit the floor. When he went down the first time, his turned around and saw him down. So although she didn' t witness the actual fall there was no noted loss of consciousness. They both state that he tried to get up at that point without any confusion, and couldn't because he had hurt his hip. So he crawled to the bedroom and got into bed. A few hours later he tried to get up and walk around but couldn't, then fell from a standing height again, now onto his L wrist. It doesn't appear that he had a syncopal issue at all. He has no h/o syncope. Telemetry was reviewed and he was without events. 2D echo was reviewed and was within normal limits. Orthostatics were unable to be obtained 2/2/ hip fracture and his inability to stand. He was noted to be dry on exam by the admitting team, and that he endorsed feeling lightheaded when standing. Fall appears to be mechanical in the setting of possible dehydration and under stress while trying to help his with their cat. No further syncopal workup should be necessary. (3) Fracture of proximal end of right femur: s/p ORIF by Dr. Michele today. Pain is well controlled. Cont post op activity restrictions per Ortho (4) COPD (chronic obstructive pulmonary disease): h/o smoking, no wheezing, COPD appears stable. HE doesn't require supplemental oxygen at home and is not on home inhaler therapy. (5) HTN (hypertension): BP is low normal post-op--holding home lisinopril. (6) CKD (chronic kidney disease), stage III: Baseline Cr of 1.1-1.3, GFR of mid 50s. Currently Cr 1.4, GFR 49 -Dry on exam initially. Given 1L NSS in ED -Repeat BMP in AM to monitor renal function -Avoid nephrotoxic agents (7) Tobacco use disorder: Has 50+ pack years. Quit smoking cigarettes in 2013, now smokes tobacco from a pipe -Counselled on importance of cessation (8) BPH (benign prostatic hyperplasia): Continue flomax, proscar DVT Ppx: SCDs until cleared by surgeons for other form of DVT propphy Code status: DNR PCP: [facility] Dispo: pending Ortho recs. Bing Ramirez DO [facility] Hospitalist Subjective 72 yo M presents with hip pain after a fall at home. s/p ORIF today with improvement in pain. Still some pain in the L wrist. Otherwise he does not report any other symptoms. See A/P for more in depth description of fall event at home. Tolerating PO. Physical Exam 2 Vital Signs (Past 24 Hours): Last Vital Signs Temp 36.8 C 05/03/18 15:50 Pulse 93 H 05/03/18 15:50 Resp 18 05/03/18 15:50 BP 145/78 H 05/03/18 15:50 Pulse Ox 95 05/03/18 15:50 CONSTITUTIONAL: WNWD, vitals as above, generally well-appearing, NATIVE EYES: normal conjuctivae, no scleral icterus RESPIRATORY: clear to auscultation bilaterally, no crackles, rales or wheezes, normal respiratory effort CARDIOVASCULAR: regular rate and rhythm, S1 and 2 heard without murmurs, gallops or rubs, no JVD, no peripheral edema GASTROINTESTINAL: normal bowel sounds, soft, nontender, nondistended. MUSCULOSKELETAL: limited exam 2/2 recent hip surgery. Legs NVI. L wrist examined with slightly limited ROM, no significant swelling or bruising present , and no significant TTP. Head is normocephalic and atraumatic, neck supple SKIN: warm and dry NEUROLOGIC: No facial palsy, no dysarthria. CN 2-12 grossly intact, no sensory deficit, normal cognition, normal speech PSYCHIATRIC: alert cooperative and oriented to person, place and time. Results & Data Diagnostic Findings XR wrist LT w scaphoid CLINICAL HISTORY: wrist pain after FOOSH injury to L hand COMPARISON: None. DISCUSSION: Small incomplete cortical fracture dorsal aspect distal radius. Bony alignment is anatomic. No additional acute bony abnormality. There is no evidence for soft tissue swelling. IMPRESSION: Small incomplete cortical buckle fracture dorsal aspect distal radius. FL hip RT 2-3V CLINICAL HISTORY: RT HIP PERCUTANEOUS PINNING VS TOTAL HIP COMPARISON STUDY: Right femur radiographs and CT of the pelvis September or 2018. FLUOROSCOPY TIME: 25.2 seconds. FLUOROSCOPIC IMAGES: 2 FINDINGS: These images demonstrate expected findings following placement of 3 cannulated screws which extend across the femoral neck fracture. Hardware is intact. Fracture alignment appears anatomic. There are no unexpected radiopaque foreign bodies. IMPRESSION: Expected findings following internal fixation of the right femoral neck fracture. Medications Administered Current Inpatient Medications Acetaminophen (Tylenol) 650 mg PO Q4H PRN PRN Reason: Pain or Fever Stop: 06/01/18 21:44 Aspirin (Ecotrin) 81 mg PO DAILY@1300 ANA M Stop: 06/02/18 12:59 Last Admin: 05/03/18 17:10 Dose: 81 mg Bisacodyl (Dulcolax) 10 mg ME DAILY PRN PRN Reason: Constipation Stop: 06/01/18 21:44 Enoxaparin Sodium (Lovenox) 30 mg SQ Q24H ANA M Stop: 06/03/18 08:59 Hydromorphone HCl (Dilaudid) 0.5 mg IV Q3H PRN PRN Reason: Pain Stop: 05/16/18 19:36 Last Admin: 05/03/18 12:34 Dose: 0.5 mg Prochlorperazine 5 mg/ Syringe 5 mls @ 5 mls/min IV Q6H PRN PRN Reason: Nausea And Vomiting Stop: 06/01/18 19:36 Sodium Chloride (Nss 1000ml) 1,000 mls @ 60 mls/hr IV .[id number] ANA M Stop: 06/02/18 00:00 Last Admin: 05/03/18 17:11 Dose: 60 mls/hr Cefazolin Sodium (Ancef 1000mg) 1,000 mg in 7.5 mls @ 2.5 mls/min IV Q8H ANA M; Protocol Stop: 05/04/18 06:02 Last Admin: 05/03/18 21:20 Dose: 2.5 mls/min Lisinopril (Zestril) 2.5 mg PO QAM ANA M Stop: 06/02/18 08:59 Last Admin: 05/03/18 09:01 Dose: 2.5 mg Loratadine (Claritin) 10 mg PO DAILY@1300 [facility] Stop: 06/02/18 12:59 Last Admin: 05/03/18 17:10 Dose: 10 mg Magnesium Hydroxide (Milk Of Magnesia) 30 ml PO DAILY PRN PRN Reason: Constipation Stop: 06/01/18 21:44 Multivitamins (Multivitamin) 1 tab PO DAILY@1300 [facility] Stop: 06/02/18 12:59 Last Admin: 05/03/18 17:10 Dose: 1 tab Naloxone HCl (Narcan) 0.1 mg IV UD PRN PRN Reason: opiate overdose Stop: 06/01/18 21:44 Naloxone HCl (Narcan) 0.1 mg IV UD PRN PRN Reason: Opioid Overdose Stop: 06/02/18 16:20 Nitroglycerin (Nitrostat) 0.4 mg SL UD PRN PRN Reason: Chest Pain Stop: 06/01/18 21:44 Oxycodone HCl (Roxicodone Immediate Rel) 5 mg PO Q4H PRN PRN Reason: Moderate Pain (Scale 4,5,6) Stop: 05/17/18 16:20 Sodium Biphosphate/Sodium Phosphate (Fleet Enema) 132 ml ME DAILY PRN PRN Reason: Constipation Stop: 06/01/18 21:44 Tamsulosin HCl (Flomax) 0.4 mg PO DAILY@1300 [facility] Stop: 06/02/18 12:59 Last Admin: 05/03/18 17:10 Dose: 0.4 mg Tramadol HCl (Ultram) 25 - 50 mg PO Q4H PRN PRN Reason: Pain Stop: 06/01/18 19:36 Last Admin: 05/03/18 21:19 Dose: 50 mg _ (1) Fracture of proximal end of right femur Encounter type: initial encounter Fracture healing: Fracture type: closed Open fracture type: Qualified Code(s): S72.001A - Fracture of unspecified part of neck of right femur, initial encounter for closed fracture
[2018-05-03] MEDS ORDERED: OXYCODONE HCL IR 5 MG TAB (IMMEDIATE RELEASE) PO PRN (16:21)
[2018-05-03] MEDS ORDERED: NALOXONE HCL 0.4 MG/1 ML VIAL/CARP IV PRN (16:21)
[2018-05-03] MEDS: SODIUM CHLORIDE 0.9% 1000ML 1,000 ML IV SCH (17:11)
[2018-05-03] MEDS: CEFAZOLIN 1000MG 1,000 MG/7.5 ML SYR IV SCH (21:20)
--- NOTE | 2018-05-03 21:29 | XRay Report ---
XR wrist LT w scaphoid CLINICAL HISTORY: wrist pain after FOOSH injury to L hand COMPARISON: None. DISCUSSION: Small incomplete cortical fracture dorsal aspect distal radius. Bony alignment is anatomi c. No additional acute bony abnormality. There is no evidence for soft tissue swelling. IMPRESSION: Small incomplete cortical buckle fracture dorsal aspect distal radius. The above report was generated using voice recognition software. It may contain grammatical, syntax or spelling errors. Electronically signed by: Jovanni Vo M.D. 05/03/2018 9:28 PM
[2018-05-04] MEDS: CEFAZOLIN 1000MG 1,000 MG/7.5 ML SYR IV SCH (05:09)
[2018-05-04 05:50] LABS: Basophils # (auto) 0.01 K/uL (0-0.2); Basophils % (auto) 0.1 %; Eosinophils # (auto) 0.02 K/uL (0-0.5); Eosinophils % (auto) 0.2 %; Hematocrit (blood only) 39.8 % (42-52); Hemoglobin 13.6 g/dL (14.0-18.0); Immature Granulocytes # (auto) 0.02 K/uL (0.00-0.02); Immature Granulocytes % (auto) 0.2 %; Lymphocytes % (auto) 6.9 %; Mean Corpuscular Hgb Conc 34.2 g/dL (32-36); Mean Platelet Volume 10.1 fL (7.4-10.4); Monocytes # (auto) 0.66 K/uL (0.11-0.59); Monocytes % (auto) 7.6 %; Platelet Count 223 K/uL (130-400); RDW Coefficient of Variation 13.1 % (11.5-14.5); RDW Standard Deviation 42.9 fL (36.4-46.3); Red Blood Count 4.47 M/uL (4.7-6.1); White Blood Count 8.71 K/uL (4.8-10.8)
[2018-05-04 06:17] LABS: BUN Creatinine Ratio 13.8 (10-20); Calcium 8.3 mg/dl (8.5-10.1); Est GFR (African American) 75.1; Est GFR (Non-African American) 64.8; Potassium 4.3 mmol/L (3.5-5.1)
[2018-05-04] MEDS: ENOXAPARIN INJ 30 MG/0.3 ML SYR SQ SCH (08:09)
[2018-05-04] MEDS: SODIUM CHLORIDE 0.9% 1000ML 1,000 ML IV SCH (08:10)
--- NOTE | 2018-05-04 10:29 | Anesthesiology Progress Note ---
Date of Service May 04, 2018 Anesthesia Post Procedure Vital Signs Vital Signs: Temp Pulse Pulse Pulse Resp BP Pulse Ox 05/04/18 07:58 36.7 C 73 20 102/59 L 97 05/03/18 23:22 36.9 C 89 18 102/59 L 97 05/03/18 20:00 05/03/18 19:11 36.7 C 87 19 105/66 98 05/03/18 17:38 36.5 C 98 H 19 114/78 98 05/03/18 17:00 36.9 C 99 H 95 H 115/71 95 05/03/18 16:45 80 05/03/18 16:30 36.8 C 88 17 112/75 93 05/03/18 16:20 88 16 125/71 97 05/03/18 16:10 90 16 136/79 95 05/03/18 16:00 86 18 134/85 95 05/03/18 15:50 36.8 C 93 H 18 145/78 H 95 05/03/18 15:40 91 H 18 130/71 100 05/03/18 15:30 92 H 18 126/76 100 05/03/18 15:20 102 H 18 123/67 99 05/03/18 15:10 36.3 C L 96 H 19 107/63 99 05/03/18 13:29 36.4 C L 104 H 20 155/97 H 95 05/03/18 11:14 36.7 C 87 18 108/63 93 Pulse Ox 05/04/18 07:58 05/03/18 23:22 05/03/18 20:00 96 05/03/18 19:11 05/03/18 17:38 05/03/18 17:00 05/03/18 16:45 05/03/18 16:30 05/03/18 16:20 05/03/18 16:10 05/03/18 16:00 05/03/18 15:50 05/03/18 15:40 05/03/18 15:30 05/03/18 15:20 05/03/18 15:10 05/03/18 13:29 05/03/18 11:14 Pain Intensity Right Hip: Pain Intensity: 0 Notes Mental Status: alert / awake / arousable and participated in evaluation Patient Amnestic to Procedure: Yes Nausea / Vomiting: adequately controlled Pain: adequately controlled Airway Patency, RR, SpO2: stable & adequate BP & HR: stable & adequate Hydration State: stable & adequate Anesthetic Complications: no major complications apparent and Pt Satisfied with anesthetic care
--- NOTE | 2018-05-04 12:10 | Orthopedic Progress Note ---
Date of Service May 04, 2018 Assessment & Plan (1) Fracture of proximal end of right femur: POD #1 s/p ORIF right hip fx with cannulated screws. Toe touch WB on the RLE. Must use platform walker for left wrist. ROM as tolerated. PT/OT Pain control DVT prophylaxis--Lovenox. D/C planning--per medicine. Patient may require rehab vs. SNF. (2) Fracture of distal end of left radius: Volar wrist splint applied today. Splint at all times. Will x-ray the wrist out of the splint in 2 weeks at his follow up appointment for staple removal from the right hip surgery. No weightbearing on the left wrist so platform walker for the left side. Subjective Cardiovascular: no chest pain and no dyspnea Musculoskeletal: + joint pain (Right hip pain. Overall, doing well since surgery. Pain meds help with the pain. ) Main complaint today was left wrist pain. States he thought he had just sprained the wrist with his fall. However, the pain has persisted so he talked to the hospitalist and an x-ray was ordered. Still having dorsal wrist pain to this point. Physical Exam 2 Vital Signs (Past 24 Hours): Last Vital Signs Temp 36.7 C 05/04/18 07:58 Pulse 73 05/04/18 07:58 Resp 20 05/04/18 07:58 BP 102/59 L 05/04/18 07:58 Pulse Ox 98 05/04/18 11:49 Constitutional: WD/WN, vitals as above Musculoskeletal: Extremities: + wrist abnormality Left (Mild wrist swelling. Moderate to severe tenderness at the dorsal aspect of the distal radius. Pain with PROM at the terminal points of flexion/extension. No ecchymosis noted.) Hip: + surgical incision (Right hip incision dressing is clean, dry, intact. Some blood on the gauze. Right thigh is soft.); hip normal to inspection, no deformity, no skin erythema and no ecchymosis _ (1) Fracture of proximal end of right femur Encounter type: initial encounter Fracture healing: Fracture type: closed Open fracture type: Qualified Code(s): S72.001A - Fracture of unspecified part of neck of right femur, initial encounter for closed fracture
[2018-05-04] MEDS: LORATADINE 10 MG TAB PO SCH (12:47)
[2018-05-04] MEDS: ASPIRIN 81 MG ECTAB PO SCH (12:47)
[2018-05-04] MEDS: MULTIVITAMIN TAB PO SCH (12:47)
[2018-05-04] MEDS: TAMSULOSIN HCL 0.4 MG CAP PO SCH (12:58)
--- NOTE | 2018-05-04 16:37 | Hospitalist Progress Note ---
Date of Service May 04, 2018 Assessment & Plan (1) Left wrist fracture: Casted today by Ortho. Outpatient follow-up as instructed. Pain is controlled. (2) Fall: He describes the fall at home at a time when he was attempting to get his cat out of a bad spot on a shelf, so he was racing across the kitched floor to help his . He doesn't remember tripping on anything or feeling any presyncopal symptoms such as lightheadedness, but states that when he fell down he remembers the point right before his head hit the floor. When he went down the first time, his turned around and saw him down. So although she didn' t witness the actual fall there was no noted loss of consciousness. They both state that he tried to get up at that point without any confusion, and couldn't because he had hurt his hip. So he crawled to the bedroom and got into bed. A few hours later he tried to get up and walk around but couldn't, then fell from a standing height again, now onto his L wrist. It doesn't appear that he had a syncopal issue at all. He has no h/o syncope. Telemetry was reviewed and he was without events. 2D echo was reviewed and was within normal limits. Orthostatics were unable to be obtained 2/2 hip fracture and his inability to stand. He was noted to be dry on exam by the admitting team, and that he endorsed feeling lightheaded when standing. Fall appears to be mechanical in the setting of possible dehydration and under stress while trying to help his with their cat. No further syncopal workup should be necessary. No further syncopal episodes. No events on telemetry after review-transfer to med/surg (3) Fracture of proximal end of right femur: s/p ORIF by Dr. Michele. Pain is well controlled. Cont post op activity restrictions per Ortho (4) COPD (chronic obstructive pulmonary disease): h/o smoking, no wheezing, COPD appears stable. He doesn't require supplemental oxygen at home and is not on home inhaler therapy. (5) HTN (hypertension): BP is low normal post-op--holding home lisinopril. (6) CKD (chronic kidney disease), stage III: Baseline Cr of 1.1-1.3, GFR of mid 50s. Currently Cr 1.4, GFR 49 -Dry on exam initially. Given 1L NSS in ED -poss ?mild CUONG resolved -repeat Creat back to baseline at 1.1 (7) Tobacco use disorder: Has 50+ pack years. Quit smoking cigarettes in 2013, now smokes tobacco from a pipe -Counselled on importance of cessation (8) BPH (benign prostatic hyperplasia): Continue flomax, proscar DVT Ppx: SCDs until cleared by surgeons for other form of DVT propphy Code status: DNR PCP: Pilgram Dispo:likely to rehab as a transition home. Will be here through the weekend as a result. Bing Ramirez DO [facility] Hospitalist Subjective +pain controlled +feeling well +L wrist cast today Physical Exam 2 Vital Signs (Past 24 Hours): Last Vital Signs Temp 36.6 C 05/04/18 15:14 Pulse 76 05/04/18 15:14 Resp 20 05/04/18 15:14 BP 108/68 05/04/18 15:14 Pulse Ox 94 05/04/18 15:14 CONSTITUTIONAL: WNWD, vitals as above, generally well-appearing, [place] EYES: normal conjuctivae, no scleral icterus RESPIRATORY: clear to auscultation bilaterally, no crackles, rales or wheezes, normal respiratory effort CARDIOVASCULAR: regular rate and rhythm, S1 and 2 heard without murmurs, gallops or rubs, no JVD, no peripheral edema GASTROINTESTINAL: normal bowel sounds, soft, nontender, nondistended. MUSCULOSKELETAL: limited exam 2/2 recent hip surgery. Legs NVI. L wrist with new cast present. Head is normocephalic and atraumatic, neck supple SKIN: warm and dry NEUROLOGIC: No facial palsy, no dysarthria. CN 2-12 grossly intact, no sensory deficit, normal cognition, normal speech PSYCHIATRIC: alert cooperative and oriented to person, place and time. Results & Data Laboratory Results Short CBC 05/04/18 Range/Units 05:24 WBC 8.71 (4.8-10.8) K/uL Hgb 13.6 L (14.0-18.0) g/dL Hct 39.8 L (42-52) % Plt Count 223 (130-400) K/uL BMP 05/04/18 05:24 Sodium 132 L Potassium 4.3 Chloride 102 Carbon Dioxide 22 BUN 16 Creatinine 1.14 Glucose 96 Calcium 8.3 L Medications Administered Current Inpatient Medications Acetaminophen (Tylenol) 1,000 mg PO Q8 [facility] Stop: 06/03/18 17:29 Last Admin: 05/04/18 22:21 Dose: 1,000 mg Aspirin (Ecotrin) 81 mg PO DAILY@1300 [facility] Stop: 06/02/18 12:59 Last Admin: 05/04/18 12:47 Dose: 81 mg Bisacodyl (Dulcolax) 10 mg [place] DAILY PRN PRN Reason: Constipation Stop: 06/01/18 21:44 Enoxaparin Sodium (Lovenox) 30 mg SQ Q24H [facility] Stop: 06/03/18 08:59 Last Admin: 05/04/18 08:09 Dose: 30 mg Hydromorphone HCl (Dilaudid) 0.5 mg IV Q3H PRN PRN Reason: Pain Stop: 05/16/18 19:36 Last Admin: 05/03/18 12:34 Dose: 0.5 mg Lisinopril (Zestril) 2.5 mg PO QAM [facility] Stop: 06/02/18 08:59 Last Admin: 05/03/18 09:01 Dose: 2.5 mg Loratadine (Claritin) 10 mg PO DAILY@1300 [facility] Stop: 06/02/18 12:59 Last Admin: 05/04/18 12:47 Dose: 10 mg Magnesium Hydroxide (Milk Of Magnesia) 30 ml PO DAILY PRN PRN Reason: Constipation Stop: 06/01/18 21:44 Multivitamins (Multivitamin) 1 tab PO DAILY@1300 [facility] Stop: 06/02/18 12:59 Last Admin: 05/04/18 12:47 Dose: 1 tab Naloxone HCl (Narcan) 0.1 mg IV UD PRN PRN Reason: opiate overdose Stop: 06/01/18 21:44 Naloxone HCl (Narcan) 0.1 mg IV UD PRN PRN Reason: Opioid Overdose Stop: 06/02/18 16:20 Nitroglycerin (Nitrostat) 0.4 mg SL UD PRN PRN Reason: Chest Pain Stop: 06/01/18 21:44 Oxycodone HCl (Roxicodone Immediate Rel) 5 mg PO Q4H PRN PRN Reason: Moderate Pain (Scale 4,5,6) Stop: 05/17/18 16:20 Sodium Biphosphate/Sodium Phosphate (Fleet Enema) 132 ml [place] DAILY PRN PRN Reason: Constipation Stop: 06/01/18 21:44 Tamsulosin HCl (Flomax) 0.4 mg PO DAILY@1300 ANA M Stop: 06/02/18 12:59 Last Admin: 05/04/18 12:58 Dose: 0.4 mg Tramadol HCl (Ultram) 25 - 50 mg PO Q4H PRN PRN Reason: Pain Stop: 06/01/18 19:36 Last Admin: 05/03/18 21:19 Dose: 50 mg _ (1) Fracture of proximal end of right femur Encounter type: initial encounter Fracture healing: Fracture type: closed Open fracture type: Qualified Code(s): S72.001A - Fracture of unspecified part of neck of right femur, initial encounter for closed fracture
[2018-05-04] MEDS: ACETAMINOPHEN 500 MG TAB PO SCH ×2 (19:01→22:21)
[2018-05-05] MEDS: ACETAMINOPHEN 500 MG TAB PO SCH ×3 (06:18→22:25)
[2018-05-05] MEDS: ENOXAPARIN INJ 30 MG/0.3 ML SYR SQ SCH (08:57)
--- NOTE | 2018-05-05 09:49 | Orthopedic Progress Note ---
Date of Service May 05, 2018 Assessment & Plan (1) Fracture of proximal end of right femur: POD #2 s/p ORIF right hip fx with cannulated screws. Toe touch WB on the RLE. Must use platform walker for left wrist. ROM as tolerated. PT/OT Pain control DVT prophylaxis--Lovenox. D/C planning--per medicine. Patient may require rehab vs. SNF. STABLE PER ORTHOPEDICS FOR TRANSFER TO [facility] WHEN APPROVED (2) Fracture of distal end of left radius: Volar wrist splint applied today. Splint at all times. Will x-ray the wrist out of the splint in 2 weeks at his follow up appointment for staple removal from the right hip surgery. No weightbearing on the left wrist so platform walker for the left side. Patient seen and examined, agree with above assessment and plan. Subjective Postop day 2 status post percutaneous pinning right subcapital hip fracture. Patient is sitting up in bed currently and is awake and alert. He complains this morning that he had some heel pain on his heels during the nighttime which has somewhat dissipated. Having hip pain off and on. Tolerating well. States that his left wrist feels much better with the splint on. No new complaints. Denies shortness of breath, chest pain, lightheadedness currently. Physical Exam 2 Vital Signs (Past 24 Hours): Last Vital Signs Temp 36.6 C 05/05/18 07:22 Pulse 77 05/05/18 07:22 Resp 18 05/05/18 07:22 BP 95/60 L 05/05/18 07:22 Pulse Ox 97 05/05/18 07:22 Physical Exam: Right hip dressings are clean dry and intact. He has no overt swelling of his thigh and the thigh is soft and nontender. Calves are soft and nontender. Neurovascular is intact. Heels are not overtly tender on palpation. _ (1) Fracture of proximal end of right femur Encounter type: initial encounter Fracture healing: Fracture type: closed Open fracture type: Qualified Code(s): S72.001A - Fracture of unspecified part of neck of right femur, initial encounter for closed fracture
[2018-05-05] MEDS: LORATADINE 10 MG TAB PO SCH (12:53)
[2018-05-05] MEDS: TAMSULOSIN HCL 0.4 MG CAP PO SCH (12:53)
[2018-05-05] MEDS: MULTIVITAMIN TAB PO SCH (12:53)
[2018-05-05] MEDS: ASPIRIN 81 MG ECTAB PO SCH (12:53)
--- NOTE | 2018-05-05 14:34 | Hospitalist Progress Note ---
Date of Service May 05, 2018 Assessment & Plan (1) Left wrist fracture: Casted by Ortho. Outpatient follow-up as instructed. Pain is controlled. (2) Fall: s/p mechanical fall at home. He previously reported remembering his head almost hitting the floor. 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 Either way, even if this was a syncoal event, it was fleeting, and sounds very benign (such as vasovagal or orthostatic etiology) requiring no further workup at this time. (3) Fracture of proximal end of right femur: s/p ORIF by Dr. Michele POD2. Pain is well controlled. Cont post op activity restrictions per Ortho (4) COPD (chronic obstructive pulmonary disease): h/o smoking, no wheezing, COPD appears stable. He doesn't require supplemental oxygen at home and is not on home inhaler therapy. (5) HTN (hypertension): BP is low normal post-op--holding home lisinopril. (6) CKD (chronic kidney disease), stage III: Baseline Cr of 1.1-1.3, GFR of mid 50s. Currently Cr 1.4, GFR 49 -Dry on exam initially. Given 1L NSS in ED -poss ?mild CUONG resolved -repeat Creat back to baseline (7) Tobacco use disorder: Has 50+ pack years. Quit smoking cigarettes in 2012, now smokes tobacco from a pipe -Counselled on importance of cessation (8) BPH (benign prostatic hyperplasia): Continue flomax, proscar DVT Ppx: SCDs until cleared by surgeons for other form of DVT propphy Code status: DNR PCP: Pilgram Dispo:likely to rehab as a transition home. Will be here through the weekend as a result. DO [facility] Hospitalist Subjective 72 yo M s/p fall at home with subsequent hip fracture and L wrist fracture. He is s/p ORIF of the R hip and doing well from a pain standpoint. He is moving around the bed with ease, and ROS is otherwise negative. Physical Exam 2 Vital Signs (Past 24 Hours): Last Vital Signs Temp 36.6 C 05/05/18 07:22 Pulse 77 05/05/18 07:22 Resp 18 05/05/18 07:22 BP 95/60 L 05/05/18 07:22 Pulse Ox 97 05/05/18 07:22 CONSTITUTIONAL: WNWD, vitals as above, generally well-appearing, [place] EYES: normal conjuctivae, no scleral icterus RESPIRATORY: clear to auscultation bilaterally, no crackles, rales or wheezes, normal respiratory effort CARDIOVASCULAR: regular rate and rhythm, S1 and 2 heard without murmurs, gallops or rubs, no JVD, no peripheral edema GASTROINTESTINAL: normal bowel sounds, soft, nontender, nondistended. MUSCULOSKELETAL: limited exam 2/2 recent hip surgery. Legs NVI. L wrist with new cast present. Head is normocephalic and atraumatic, neck supple SKIN: warm and dry NEUROLOGIC: No facial palsy, no dysarthria. CN 2-12 grossly intact, no sensory deficit, normal cognition, normal speech PSYCHIATRIC: alert cooperative and oriented to person, place and time. Results & Data Medications Administered Current Inpatient Medications Acetaminophen (Tylenol) 1,000 mg PO Q8 [facility] Stop: 06/03/18 17:29 Last Admin: 05/05/18 22:25 Dose: 1,000 mg Aspirin (Ecotrin) 81 mg PO DAILY@1300 [facility] Stop: 06/02/18 12:59 Last Admin: 05/05/18 12:53 Dose: 81 mg Bisacodyl (Dulcolax) 10 mg [place] DAILY PRN PRN Reason: Constipation Stop: 06/01/18 21:44 Enoxaparin Sodium (Lovenox) 30 mg SQ Q24H [facility] Stop: 06/03/18 08:59 Last Admin: 05/05/18 08:57 Dose: 30 mg Hydromorphone HCl (Dilaudid) 0.5 mg IV Q3H PRN PRN Reason: Pain Stop: 05/16/18 19:36 Last Admin: 05/03/18 12:34 Dose: 0.5 mg Lisinopril (Zestril) 2.5 mg PO QAM [facility] Stop: 06/02/18 08:59 Last Admin: 05/03/18 09:01 Dose: 2.5 mg Loratadine (Claritin) 10 mg PO DAILY@1300 [facility] Stop: 06/02/18 12:59 Last Admin: 05/05/18 12:53 Dose: 10 mg Magnesium Hydroxide (Milk Of Magnesia) 30 ml PO DAILY PRN PRN Reason: Constipation Stop: 06/01/18 21:44 Multivitamins (Multivitamin) 1 tab PO DAILY@1300 [facility]NA M Stop: 06/02/18 12:59 Last Admin: 05/05/18 12:53 Dose: 1 tab Naloxone HCl (Narcan) 0.1 mg IV UD PRN PRN Reason: opiate overdose Stop: 06/01/18 21:44 Naloxone HCl (Narcan) 0.1 mg IV UD PRN PRN Reason: Opioid Overdose Stop: 06/02/18 16:20 Nitroglycerin (Nitrostat) 0.4 mg SL UD PRN PRN Reason: Chest Pain Stop: 06/01/18 21:44 Oxycodone HCl (Roxicodone Immediate Rel) 5 mg PO Q4H PRN PRN Reason: Moderate Pain (Scale 4,5,6) Stop: 05/17/18 16:20 Sodium Biphosphate/Sodium Phosphate (Fleet Enema) 132 ml [place] DAILY PRN PRN Reason: Constipation Stop: 06/01/18 21:44 Tamsulosin HCl (Flomax) 0.4 mg PO DAILY@1300 [facility]NA M Stop: 06/02/18 12:59 Last Admin: 05/05/18 12:53 Dose: 0.4 mg Tramadol HCl (Ultram) 25 - 50 mg PO Q4H PRN PRN Reason: Pain Stop: 06/01/18 19:36 Last Admin: 05/03/18 21:19 Dose: 50 mg _ (1) Fracture of proximal end of right femur Encounter type: initial encounter Fracture healing: Fracture type: closed Open fracture type: Qualified Code(s): S72.001A - Fracture of unspecified part of neck of right femur, initial encounter for closed fracture
[2018-05-06 06:08] LABS: Hematocrit (blood only) 40.7 % (42-52); Hemoglobin 14.1 g/dL (14.0-18.0); Mean Corpuscular Hgb Conc 34.6 g/dL (32-36); Mean Corpuscular Volume 89.1 fL (80-100); Mean Platelet Volume 9.7 fL (7.4-10.4); Platelet Count 268 K/uL (130-400); RDW Coefficient of Variation 13.1 % (11.5-14.5); RDW Standard Deviation 42.7 fL (36.4-46.3); Red Blood Count 4.57 M/uL (4.7-6.1); White Blood Count 6.83 K/uL (4.8-10.8)
[2018-05-06] MEDS: ACETAMINOPHEN 500 MG TAB PO SCH ×3 (06:24→22:26)
[2018-05-06 06:44] LABS: Calcium 8.7 mg/dl (8.5-10.1); Creatinine Clr Calc Pharmacy 68.4 ml/min; Est GFR (African American) 93.6; Est GFR (Non-African American) 80.8; Potassium 3.7 mmol/L (3.5-5.1)
--- NOTE | 2018-05-06 08:47 | Orthopedic Progress Note ---
Date of Service May 06, 2018 Assessment & Plan (1) Fracture of proximal end of right femur: POD #3 s/p ORIF right hip fx with cannulated screws. Toe touch WB on the RLE. Must use platform walker for left wrist. ROM as tolerated. PT/OT Pain control DVT prophylaxis--Lovenox. D/C planning--per medicine. Patient may require rehab vs. SNF. ORTHOPEDICS WILL SIGN OFF AT THIS TIME. STABLE PER ORTHOPEDICS FOR TRANSFER TO [facility] WHEN APPROVED (2) Fracture of distal end of left radius: Volar wrist splint applied today. Splint at all times. Will x-ray the wrist out of the splint in 2 weeks at his follow up appointment for staple removal from the right hip surgery. No weightbearing on the left wrist so platform walker for the left side. Patient seen and examined, agree with above assessment and plan. Subjective Patient is postop day 3 status post percutaneous pinning right hip fracture and splinting of probable left distal radius fracture. Patient is currently sitting up in bed eating breakfast. He has no complaints this morning. He feels well and is [facility]. Physical Exam 2 Vital Signs (Past 24 Hours): Last Vital Signs Temp 36.6 C 05/06/18 07:43 Pulse 77 05/06/18 07:43 Resp 18 05/06/18 07:43 BP 119/79 05/06/18 07:43 Pulse Ox 97 05/06/18 07:43 Physical Exam: Dressings are clean dry and intact. There is no overt erythema around the dressing area. No overt swelling of the thigh. Splint is intact on the left upper extremity. Capillary refill is less than 2 seconds. He has good range of motion of his fingers and has good sensation. _ (1) Fracture of proximal end of right femur Encounter type: initial encounter Fracture healing: Fracture type: closed Open fracture type: Qualified Code(s): S72.001A - Fracture of unspecified part of neck of right femur, initial encounter for closed fracture
[2018-05-06] MEDS: ENOXAPARIN INJ 30 MG/0.3 ML SYR SQ SCH (10:01)
[2018-05-06] MEDS: MULTIVITAMIN TAB PO SCH (13:07)
[2018-05-06] MEDS: LORATADINE 10 MG TAB PO SCH (13:07)
[2018-05-06] MEDS: ASPIRIN 81 MG ECTAB PO SCH (13:08)
[2018-05-06] MEDS: TAMSULOSIN HCL 0.4 MG CAP PO SCH (13:08)
--- NOTE | 2018-05-06 15:45 | Hospitalist Progress Note ---
Date of Service May 06, 2018 Assessment & Plan (1) Left wrist fracture: Casted by Ortho. Outpatient follow-up as instructed. Pain is controlled. (2) Fall: Questionable syncopal event prior to fall, likely vasovagal etiology or related to orthostatic hypotension. Workup negative to date. No further issues. (3) Fracture of proximal end of right femur: s/p ORIF by Dr. Michele POD3. Pain is well controlled. Cont post op activity restrictions per Ortho (4) COPD (chronic obstructive pulmonary disease): h/o smoking, no wheezing, COPD appears stable. He doesn't require supplemental oxygen at home and is not on home inhaler therapy. Smokes a pipe at home, declines nicoderm patch (5) HTN (hypertension): BP is low normal post-op--holding home lisinopril. (6) CKD (chronic kidney disease), stage III: Currently at baseline. (7) Tobacco use disorder: Has 50+ pack years. Quit smoking cigarettes in 2012, now smokes tobacco from a pipe -Counselled on importance of cessation (8) BPH (benign prostatic hyperplasia): Continue flomax, proscar DVT Ppx: Lovenox Code status: DNR PCP: Shabnam Dispo:likely to rehab as a transition home. Will be here through the weekend as a result. Bing Ramirez DO [facility] Hospitalist Subjective +pain the is controlled +tolerating PO +BM this am Physical Exam 2 Vital Signs (Past 24 Hours): Last Vital Signs Temp 36.5 C 05/06/18 15:39 Pulse 89 05/06/18 15:39 Resp 20 05/06/18 15:39 BP 104/59 L 05/06/18 15:39 Pulse Ox 96 05/06/18 15:39 CONSTITUTIONAL: WNWD, vitals as above, generally well-appearing, [place] EYES: normal conjuctivae, no scleral icterus RESPIRATORY: clear to auscultation bilaterally, no crackles, rales or wheezes, normal respiratory effort CARDIOVASCULAR: regular rate and rhythm, S1 and 2 heard without murmurs, gallops or rubs, no JVD, no peripheral edema GASTROINTESTINAL: normal bowel sounds, soft, nontender, nondistended. MUSCULOSKELETAL: limited exam 2/2 recent hip surgery. Legs NVI. L wrist with new cast present. L hand is arm and well-perfused. Head is normocephalic and atraumatic SKIN: warm and dry NEUROLOGIC: CN 2-12 grossly intact, no sensory deficit, normal cognition PSYCHIATRIC: alert cooperative and oriented to person, place and time. Results & Data Laboratory Results Short CBC 05/06/18 Range/Units 05:50 WBC 6.83 (4.8-10.8) K/uL Hgb 14.1 (14.0-18.0) g/dL Hct 40.7 L (42-52) % Plt Count 268 (130-400) K/uL BMP 05/06/18 05:50 Sodium 135 L Potassium 3.7 Chloride 105 Carbon Dioxide 25 BUN 16 Creatinine 0.95 Glucose 88 Calcium 8.7 Medications Administered Current Inpatient Medications Acetaminophen (Tylenol) 1,000 mg PO Q8 [facility] Stop: 06/03/18 17:29 Last Admin: 05/06/18 13:47 Dose: 1,000 mg Aspirin (Ecotrin) 81 mg PO DAILY@1300 [facility] Stop: 06/02/18 12:59 Last Admin: 05/06/18 13:08 Dose: 81 mg Bisacodyl (Dulcolax) 10 mg [place] DAILY PRN PRN Reason: Constipation Stop: 06/01/18 21:44 Enoxaparin Sodium (Lovenox) 30 mg SQ Q24H [facility] Stop: 06/03/18 08:59 Last Admin: 05/06/18 10:01 Dose: 30 mg Hydromorphone HCl (Dilaudid) 0.5 mg IV Q3H PRN PRN Reason: Pain Stop: 05/16/18 19:36 Last Admin: 05/03/18 12:34 Dose: 0.5 mg Lisinopril (Zestril) 2.5 mg PO QAM [facility] Stop: 06/02/18 08:59 Last Admin: 05/03/18 09:01 Dose: 2.5 mg Loratadine (Claritin) 10 mg PO DAILY@1300 [facility] Stop: 06/02/18 12:59 Last Admin: 05/06/18 13:07 Dose: 10 mg Magnesium Hydroxide (Milk Of Magnesia) 30 ml PO DAILY PRN PRN Reason: Constipation Stop: 06/01/18 21:44 Multivitamins (Multivitamin) 1 tab PO DAILY@1300 [facility] Stop: 06/02/18 12:59 Last Admin: 05/06/18 13:07 Dose: 1 tab Naloxone HCl (Narcan) 0.1 mg IV UD PRN PRN Reason: opiate overdose Stop: 06/01/18 21:44 Naloxone HCl (Narcan) 0.1 mg IV UD PRN PRN Reason: Opioid Overdose Stop: 06/02/18 16:20 Nitroglycerin (Nitrostat) 0.4 mg SL UD PRN PRN Reason: Chest Pain Stop: 06/01/18 21:44 Oxycodone HCl (Roxicodone Immediate Rel) 5 mg PO Q4H PRN PRN Reason: Moderate Pain (Scale 4,5,6) Stop: 05/17/18 16:20 Sodium Biphosphate/Sodium Phosphate (Fleet Enema) 132 ml [place] DAILY PRN PRN Reason: Constipation Stop: 06/01/18 21:44 Tamsulosin HCl (Flomax) 0.4 mg PO DAILY@1300 [facility] M Stop: 06/02/18 12:59 Last Admin: 05/06/18 13:08 Dose: 0.4 mg Tramadol HCl (Ultram) 25 - 50 mg PO Q4H PRN PRN Reason: Pain Stop: 06/01/18 19:36 Last Admin: 05/03/18 21:19 Dose: 50 mg _ (1) Fracture of proximal end of right femur Encounter type: initial encounter Fracture healing: Fracture type: closed Open fracture type: Qualified Code(s): S72.001A - Fracture of unspecified part of neck of right femur, initial encounter for closed fracture
[2018-05-07] MEDS: ACETAMINOPHEN 500 MG TAB PO SCH ×3 (06:24→22:27)
[2018-05-07] MEDS: ENOXAPARIN INJ 30 MG/0.3 ML SYR SQ SCH (08:44)
[2018-05-07] MEDS: ASPIRIN 81 MG ECTAB PO SCH (12:53)
[2018-05-07] MEDS: MULTIVITAMIN TAB PO SCH (12:53)
[2018-05-07] MEDS: LORATADINE 10 MG TAB PO SCH (12:54)
[2018-05-07] MEDS: TAMSULOSIN HCL 0.4 MG CAP PO SCH (12:54)
--- NOTE | 2018-05-07 18:03 | Hospitalist Progress Note ---
Date of Service May 07, 2018 Assessment & Plan (1) Left wrist fracture: Casted by Ortho. Outpatient follow-up as instructed. Pain is controlled. (2) Fall: Questionable syncopal event prior to fall, likely vasovagal etiology or related to orthostatic hypotension vs no syncope at all. Workup negative to date. No further issues. (3) Fracture of proximal end of right femur: s/p ORIF by Dr. Michele POD4. Pain is well controlled. Cont post op activity restrictions per Ortho (4) COPD (chronic obstructive pulmonary disease): h/o smoking, no wheezing, COPD appears stable. He doesn't require supplemental oxygen at home and is not on home inhaler therapy. Smokes a pipe at home, declines nicoderm patch (5) HTN (hypertension): BP is low normal post-op--holding home lisinopril. (6) CKD (chronic kidney disease), stage III: Currently at baseline. (7) Tobacco use disorder: Has 50+ pack years. Quit smoking cigarettes in 2012, now smokes tobacco from a pipe -Counselled on importance of cessation (8) BPH (benign prostatic hyperplasia): Continue flomax, proscar DVT Ppx: Lovenox Code status: DNR PCP: Shabnam Dispo[facility] Subjective +pain controlled +frustration with activity limitation -tolerating PO -no fevers Physical Exam 2 Vital Signs (Past 24 Hours): Last Vital Signs Temp 36.6 C 05/07/18 15:32 Pulse 97 H 05/07/18 15:32 Resp 18 05/07/18 15:32 BP 108/71 05/07/18 15:32 Pulse Ox 98 05/07/18 15:32 CONSTITUTIONAL: WNWD, vitals as above, generally well-appearing, [place] EYES: normal conjuctivae, no scleral icterus RESPIRATORY: clear to auscultation bilaterally, no crackles, rales or wheezes, normal respiratory effort CARDIOVASCULAR: regular rate and rhythm, S1 and 2 heard without murmurs, gallops or rubs, no JVD, no peripheral edema GASTROINTESTINAL: normal bowel sounds, soft, nontender, nondistended. MUSCULOSKELETAL: Legs NVI. L wrist with new cast present. Head is normocephalic and atraumatic, neck supple SKIN: warm and dry NEUROLOGIC: No facial palsy, no dysarthria. CN 2-12 grossly intact, no sensory deficit, normal cognition, normal speech PSYCHIATRIC: alert cooperative and oriented to person, place and time. Results & Data Medications Administered Current Inpatient Medications Acetaminophen (Tylenol) 1,000 mg PO Q8 [facility] Stop: 06/03/18 17:29 Last Admin: 05/07/18 22:27 Dose: 1,000 mg Aspirin (Ecotrin) 81 mg PO DAILY@1300 [facility] Stop: 06/02/18 12:59 Last Admin: 05/07/18 12:53 Dose: 81 mg Bisacodyl (Dulcolax) 10 mg MD DAILY PRN PRN Reason: Constipation Stop: 06/01/18 21:44 Enoxaparin Sodium (Lovenox) 30 mg SQ Q24H [facility] Stop: 06/03/18 08:59 Last Admin: 05/07/18 08:44 Dose: 30 mg Hydromorphone HCl (Dilaudid) 0.5 mg IV Q3H PRN PRN Reason: Pain Stop: 05/16/18 19:36 Last Admin: 05/03/18 12:34 Dose: 0.5 mg Lisinopril (Zestril) 2.5 mg PO QAM [facility] Stop: 06/02/18 08:59 Last Admin: 05/03/18 09:01 Dose: 2.5 mg Loratadine (Claritin) 10 mg PO DAILY@1300 [facility] Stop: 06/02/18 12:59 Last Admin: 05/07/18 12:54 Dose: 10 mg Magnesium Hydroxide (Milk Of Magnesia) 30 ml PO DAILY PRN PRN Reason: Constipation Stop: 06/01/18 21:44 Multivitamins (Multivitamin) 1 tab PO DAILY@1300 [facility] Stop: 06/02/18 12:59 Last Admin: 05/07/18 12:53 Dose: 1 tab Naloxone HCl (Narcan) 0.1 mg IV UD PRN PRN Reason: opiate overdose Stop: 06/01/18 21:44 Naloxone HCl (Narcan) 0.1 mg IV UD PRN PRN Reason: Opioid Overdose Stop: 06/02/18 16:20 Nitroglycerin (Nitrostat) 0.4 mg SL UD PRN PRN Reason: Chest Pain Stop: 06/01/18 21:44 Oxycodone HCl (Roxicodone Immediate Rel) 5 mg PO Q4H PRN PRN Reason: Moderate Pain (Scale 4,5,6) Stop: 05/17/18 16:20 Sodium Biphosphate/Sodium Phosphate (Fleet Enema) 132 ml MD DAILY PRN PRN Reason: Constipation Stop: 06/01/18 21:44 Tamsulosin HCl (Flomax) 0.4 mg PO DAILY@1300 [facility] Stop: 06/02/18 12:59 Last Admin: 05/07/18 12:54 Dose: 0.4 mg Tramadol HCl (Ultram) 25 - 50 mg PO Q4H PRN PRN Reason: Pain Stop: 06/01/18 19:36 Last Admin: 05/03/18 21:19 Dose: 50 mg _ (1) Fracture of proximal end of right femur Encounter type: initial encounter Fracture healing: Fracture type: closed Open fracture type: Qualified Code(s): S72.001A - Fracture of unspecified part of neck of right femur, initial encounter for closed fracture
[2018-05-08] MEDS: ACETAMINOPHEN 500 MG TAB PO SCH (06:28)
[2018-05-08] MEDS: ENOXAPARIN INJ 30 MG/0.3 ML SYR SQ SCH (09:35)
[2018-05-08] MEDS: LORATADINE 10 MG TAB PO SCH (12:48)
[2018-05-08] MEDS: MULTIVITAMIN TAB PO SCH (12:48)
[2018-05-08] MEDS: ASPIRIN 81 MG ECTAB PO SCH (12:48)
[2018-05-08] MEDS: TAMSULOSIN HCL 0.4 MG CAP PO SCH (12:48)
--- NOTE | 2018-05-10 13:30 | Discharge Summary ---
Date of Service May 10, 2018 Admission HPI Per Admitting Provider This is a 9-year-old male with a PMH of HTN, CKD III, moderate COPD, BPH and tobacco use disorder who presents after a fall at home last evening. Patient was walking to the kitchen and reached up to get something out of the cabinet when he lost consciousness and fell to the ground, hitting his right leg on some furniture on the way down. Endorses head trauma. Denies any proceeding lightheadedness, dizziness, chest pain, palpitations or shortness of breath. After landing on furniture, patient experienced shooting pain to right leg with any type of ambulation. Was attempting to ambulate with crutches around midnight when he had a mechanical fall. Continued to experience pain overnight with any movement of right leg. Took 2 ibuprofen at home with minimal relief. Came to ED for further evaluation Patient is hemodynamically stable. CT head and chest x-ray without acute abnormalities. CT pelvis with subtle acute nondisplaced transcervical fracture of the proximal right femur and mild degree of reactive deep tissue edema about the right hip with trace joint effusion. Feels mildly nauseated right now but thinks it is due to the pain medication he was just given. Has not been able to tolerate p.o. intake today due to pain. Did not take home medications today. Denies any fever, chills, lightheadedness, headache, chest pain, palpitations, shortness of breath, abdominal pain, vomiting, dysuria, diarrhea or constipation. No history of heart disease or DVT/PE. Does not require home oxygen. Admission Exam Per Admitting Provider General Appearance: WD/WN, appears older than stated age, in mild distress from acute right leg pain Head: normocephalic, atraumatic Eyes: normal inspection, PERRL, EOMI ENT: hard of hearing, pharynx normal (moist mucous membranes) Neck: supple, no JVD, no adenopathy Respiratory/Chest: lungs clear to auscultation. No wheezes, rales or rhonci. No respiratory distress or accessory muscle use Cardiovascular: regular rate, rhythm, no murmur, normal peripheral pulses Abdomen/GI: normal bowel sounds, soft, non-tender to palpation Extremities/Musculoskelatal: + Tenderness to palpation along right proximal femur. Refused range of motion and strength against resistance 2/2 pain. Distal pulses intact. No calf tenderness, normal capillary refill, no pedal edema Neurologic/Psych: alert, normal mood/affect, oriented x 3 Skin: normal color, warm/dry Principal Diagnosis fall with possible syncope, likely vasovagal R hip fracture s/p repair L wrist fracture Discharge Exam CONSTITUTIONAL: WNWD, vitals as above, generally well-appearing, [place] EYES: normal conjuctivae, no scleral icterus RESPIRATORY: clear to auscultation bilaterally, no crackles, rales or wheezes, normal respiratory effort CARDIOVASCULAR: regular rate and rhythm, S1 and 2 heard without murmurs, gallops or rubs, no JVD, no peripheral edema GASTROINTESTINAL: normal bowel sounds, soft, nontender, nondistended. MUSCULOSKELETAL: Legs NVI. L wrist with new cast present. Head is normocephalic and atraumatic, neck supple SKIN: warm and dry NEUROLOGIC: No facial palsy, no dysarthria. CN 2-12 grossly intact, no sensory deficit, normal cognition, normal speech PSYCHIATRIC: alert cooperative and oriented to person, place and time. Discharge Data Allergies Allergy/AdvReac Type Severity Reaction Status Date / Time No Known Allergies Allergy Unverified 05/02/18 19:12 Consultations 05/02/18 18:33 ED Decision to Admit Stat 05/02/18 18:46 Consult Orthopedic Surgery Routine 05/02/18 21:45 Consult Case Management - Discharge Planning Routine Consult Case Management - Discharge Planning Routine Consult Orthopedic Surgery Routine 05/03/18 16:21 Consult Case Management - Discharge Planning Routine Procedures Performed Operation Date: 05/03/18 09:40 Actual Procedures p Open Reduction Internal Fixation Right Hip Cannulated Screw(Right) - Gurdeep Michele MD Ordered Studies 05/02/18 17:20 CT head/brain wo con Stat CT pelvis wo con Stat 05/03/18 FL fluoroscopy <1hr Routine FL hip RT 2-3V Routine Hospital Course (1) Left wrist fracture: (2) Fall: (3) Fracture of proximal end of right femur: (4) COPD (chronic obstructive pulmonary disease): (5) HTN (hypertension): (6) CKD (chronic kidney disease), stage III: (7) Tobacco use disorder: (8) BPH (benign prostatic hyperplasia): 72-year-old male presented to the ER after a fall at home 1 day prior to arrival. There was a question of possible syncopal episode preceding the fall, however, the patient ultimately reported remembering hitting his head on the floor and being clear and awake after hitting the floor, making syncope less likely of an etiology. He underwent a CT of the head with no acute abnormality. A CT of the pelvis revealed a proximal right femur fracture. The patient was admitted to the hospitalist service and David Frey was consulted. He was made n.p.o. after midnight in preparation for procedure the following day. Syncopal workup included a chest x-ray which was normal, EKG which revealed sinus rhythm, echocardiogram which revealed hyperdynamic LV function with an EF of greater than 70% and no significant valvular pathology. He was taken to the OR on 05/03/18 for an open reduction internal fixation of the right hip with a cannulated screw by Dr. Michele. Estimated blood loss was 20 cc and the patient was returned to the medical [place] with no complications. The following day, however, he reported left wrist pain related to his fall and this was x- rayed. X-ray revealed a fracture of the distal end of the left radius and a volar wrist splint was applied by orthopedics. The patient continued to recover on the [place]resh[place] without issue and without recurrent syncope. After a couple of days on telemetry without events he was taken off and continue to remain asymptomatic. No events on telemetry were noted he remained hemodynamic he was ultimately discharged to inpatient rehab at [facility]. He was discharged in stable condition with close primary care follow-up and orthopedic follow-up along with postop instructions. Total Time Total Time Spent Total Time Spent (In Minutes): 60 Total Time Includes: Examination of the Patient, Discharge Planning, Medication Reconciliation and Communication With Other Providers Discharge Plan Discharge Items Patient Disposition: Transfer [facility] Reason For Visit: SYNCOPE,RT HIP FRACTURE Discharge Diagnosis: fall with possible syncope, likely vasovagal R hip fracture s/p repair L wrist fracture Condition: Good Discharge Goals: Decrease discomfort and Increase independence Activity: Per 'Additional Instructions' section Activity Comment: per receiving facility Weightbearing: Right toe touch Weightbearing Comment: Right toe touch weightbearing only. No weightbearing on the left wrist. Non-emergency contact: Primary Care Provider and Surgeon Call non-emergency contact if: you have any medication questions, your symptoms worsen, your pain is not controlled and you have a fever Follow-up/Referrals: Adrian Haque MD [Primary Care Provider] - Gurdeep Michele MD [Surgeon] - (Follow up with Dr. Michele's clinic in 2 weeks from the surgery date for staple removal and for x-rays of the left wrist out of the splint.) Diet: Heart Healthy Addtl Provider Instructions: [facility] DISCHARGE INSTRUCTIONS: HIP FRACTURE SELF CARE INSTRUCTIONS: A. You are to ambulate with a walker or crutches for approximately 6 weeks. B. You are TOE TOUCH WEIGHT BEARING on your operative lower extremity for at least 6 weeks. C. Wear low heeled shoes with non-slip soles D. Be sure that your floors are free of things that could trip you throw rugs, electrical cords, and small objects. Avoid wet and waxed floors, especially with crutches/walker/cane. E. Try to walk several times a day with rest periods between. F. You may shower 48 hours after surgery and get the incision area wet, but DO NOT soak or submerge incision area in water. (No baths, swimming pools, hot tubs ) G. You may have a large, band-aid like dressing over your incision (Aquacel). This will remain on your incision for 7 days, and then can be removed. You CAN shower with this on. If incision is leaking through the dressing, please call the office . H. Do NOT apply soap or any ointment/lotions directly over incision. I. You may use ice as needed to operative site. SPECIAL CARE INSTRUCTIONS: VERY IMPORTANT TO READ AND REVIEW A. You may be at risk for phlebitis or blood clots. a. Wear surgical stockings (WINIFRED hose) for 2 weeks after surgery to improve circulation and reduce swelling. b. Take LOVENOX 30mg SQ QD for 4 weeks or as directed. This is your blood thinner. c. If you are on Coumadin- you will have daily/weekly blood work to monitor your levels. This will be done by either your family physician/ assistant service manager (if you are on Coumadin chronically) versus your orthopedic surgeon. Expect a phone call the day of or the day after your blood work is drawn to adjust your dose accordingly. B. There are a few signs you need to watch for after you are home. Call [facility] at [phone] if you experience any of the following: a. If you have a temperature of 101 degrees or higher. b. Sudden increase in pain in your hip not relieved by rest or pain medication. c. Any fluid or drainage from the incision; redness of the incision. d. Shortness of breath or chest pain. B. Please call [facility] at [phone] if you have any questions or concerns about your operation or recovery. C. Call your physician if: a. Temperature is greater than 101 degrees (F). b. Pain is not relieved by prescribed pain medications. c. Increase drainage or redness from incision. d. Unanswered questions or concerns. D. Pain Medication: a. You will be prescribed pain medication upon discharge that should last till your first post-operative appointment. b. If you experience nausea and/or skin rash, discontinue this medication and contact our office for an alternative medication. c. Caution- narcotic pain medication can cause constipation. FOLLOW UP VISIT: Please call [facility] at [phone] to schedule a follow up appointment 10-14 days from the date of your surgery date. Prescriptions: New enoxaparin [Lovenox] 30 mg/0.3 mL Syringe 30 mg subcut Q24H Qty: 3 RF: 3 acetaminophen [Tylenol Arthritis Pain] 650 mg tablet extended release 650 mg PO Q8H PRN (Reason: fever or pain) Qty: 60 RF: 0 Continue multivitamin Tablet 1 tab PO DAILY@1300 RF: 0 aspirin [Aspir-81] 81 mg Tablet,Delayed Release (Dr/Ec) 81 mg PO DAILY@1300 RF: 0 tamsulosin [Flomax] 0.4 mg capsule 0.4 mg PO DAILY@1300 RF: 0 lisinopril [Zestril] 5 mg tablet 5 mg PO DAILY@1300 RF: 0 finasteride [Proscar] 5 mg tablet 5 mg PO DAILY@1300 RF: 0 loratadine [Claritin] 10 mg Tablet 10 mg PO DAILY@1300 RF: 0 Discontinued ibuprofen 200 mg Tablet 200 mg PO QID PRN (Reason: Pain) RF: 0 Stand-Alone Forms: [facility] Discharge Orders: Discharge Order (Routine); Ordered 05/08/18 Ordered By: Bing Ramirez Skilled Items Patient informed of condition?: Yes DNR: No Discharge Level of Care: Skilled Communicable Disease: No Discharge Prognosis: Stable Admission Data Admit Date/Time: 05/02/18 20:05 Attending Provider: Bing Ramirez Admit Provider: Heraclio Denis Primary Care Provider: Adrian Haque Other Providers: Brittanie Bynum ; Heraclio Denis ; Quentin Gunter ; Dean Edmonds ; Gurdeep Michele ; Josiane Escobar ; Timbo Larsen ; Kaushik Chavez ; Kavon Mckeon ; Vladislav Alvarez Service: Medical Other Interventions: Discharge Summary Assessment (RN) Last Done: 05/08/18 10:44 DC Date/Time DO NOT enter until pt leaves facility: 05/08/18 13:46
== END 2018-05-08 13:46 | DRG 481 ==
LOC: ED 14:48 → 2N 20:05 → 3N 05-04 17:10
DX: S52.502A Unspecified fracture of the lower end of left radius, initial encounter for closed fracture; F17.290 Nicotine dependence, other tobacco product, uncomplicated; S72.034A Nondisplaced midcervical fracture of right femur, initial encounter for closed fracture; R91.1 Solitary pulmonary nodule; Y99.8 Other external cause status; Z66 Do not resuscitate; N40.0 Benign prostatic hyperplasia without lower urinary tract symptoms; Z79.899 Other long term (current) drug therapy; R55 Syncope and collapse; S09.90XA Unspecified injury of head, initial encounter; I12.9 Hypertensive chronic kidney disease with stage 1 through stage 4 chronic kidney disease, or unspecified chronic kidney disease; Z79.82 Long term (current) use of aspirin; J44.9 Chronic obstructive pulmonary disease, unspecified; Y92.000 Kitchen of unspecified non-institutional (private) residence as the place of occurrence of the external cause; N18.3 Chronic kidney disease, stage 3 (moderate); W01.190A Fall on same level from slipping, tripping and stumbling with subsequent striking against furniture, initial encounter; I73.9 Peripheral vascular disease, unspecified; Y93.01 Activity, walking, marching and hiking